=== PATIENT | female | born 1955 | race American Indian/Alaskan Native ===

== ENCOUNTER 2018-08-12 15:27 | Inpatient (IN) | payer OTHER ==
[2018-08-12 15:28] VITALS: BMI 40.7
[2018-08-12] MEDS ORDERED: Sodium Chloride 0.9% 1,000 ML IV ONE ×2 (17:05→18:26)
--- NOTE | 2018-08-12 17:10 | C.PDOC ---
History Of Present Illness 62 yo female w/PMHx of HTN, CVA, CAD come in for evaluation of bodyaches, malaise associated with nausea, 4-5 episodes of non-bilious vomiting and 4-5 episodes of watery diarrhea developed for past 24 hrs, (+) dry cough, congestion. Pr admits, (+) exposure to flu. Otherwise, denies high fever, chills, severe headache, dizziness, neck pain, CP, SOB, wheezing, hematemesis, melena, UTI sx. AT present time, appears comfortable, occasional dry cough. Time Seen by Provider: 08/12/18 15:50 Chief Complaint (Nursing): Cough, Cold, Congestion History Per: Patient Past Medical History Reviewed: Historical Data, Nursing Documentation, Vital Signs Vital Signs: Last Vital Signs Temp 98.5 F 08/12/18 15:41 Pulse 74 08/12/18 15:41 Resp 22 08/12/18 15:41 BP 118/69 08/12/18 15:41 Pulse Ox 93 L 08/12/18 15:41 - Medical History PMH: CAD, HTN, Hypercholesterolemia Surgical History: Coronary Stent (x3) Denies: Pacemaker - [facility] Procedures CORONAR ARTERIOGR-2 CATH (11/23/11) INSERTION OF ONE VASCULAR STENT (11/23/11) INSRT OF DRUG-ELUTING CORON ARTERY STENTS(S) (11/23/11) LEFT HEART CARDIAC CATH (11/23/11) LT HEART ANGIOCARDIOGRAM (11/23/11) PERCUTANEOUS TRANSLUMINAL CORONARY ANGIOPLASTY [PTCA] (11/23/11) PROCEDURE ON SINGLE VESSEL (11/23/11) Family History: States: No Known Family Hx - Social History Hx Alcohol Use: No Hx Substance Use: No - Immunization History Hx Tetanus Toxoid Vaccination: No Hx Influenza Vaccination: No Hx Pneumococcal Vaccination: No Review Of Systems Except As Marked, All Systems Reviewed And Found Negative. Constitutional: Positive for: Malaise. Negative for: Fever ENT: Positive for: Nose Discharge, Nose Congestion Cardiovascular: Negative for: Chest Pain, Palpitations, Light Headedness Respiratory: Positive for: Cough. Negative for: Shortness of Breath, Wheezing Gastrointestinal: Positive for: Nausea, Vomiting, Abdominal Pain, Diarrhea. Negative for: Melena, Hematochezia, Hematemesis Musculoskeletal: Negative for: Neck Pain Skin: Negative for: Rash Neurological: Negative for: Altered Mental Status, Headache, Dizziness Physical Exam - Physical Exam Appears: Well, Non-toxic, No Acute Distress, Other (occasional dry cough) Skin: Normal Color, Warm, Dry Head: Normacephalic Eye(s): bilateral: PERRL Nose: No Flaring, No Discharge Oral Mucosa: Moist Throat: Erythema (mild B/L), No Exudate, No Drooling Neck: Supple Cardiovascular: Rhythm Regular, No Murmur, No JVD Respiratory: No Decreased Breath Sounds, No Accessory Muscle Use, No Stridor, No Wheezing Gastrointestinal/Abdominal: Soft, No Tenderness, No Distention, No Guarding, No Rebound Back: No CVA Tenderness Extremity: Normal ROM, No Deformity, No Swelling Neurological/Psych: Oriented x3, Normal Speech ED Course And Treatment - Laboratory Results Result Diagrams: 08/12/18 17:37 08/12/18 17:37 ECG: Interpreted By Me, Viewed By Me Interpretation Of ECG: SR@91/mi, LAD, LAFB, LVH, no acute ST-T changes O2 Sat by Pulse Oximetry: 93 Pulse Ox Interpretation: Abnormal - Other Rad CXR X-Ray: Read By Radiologist Interpretation: Accession No. : [id number]. Patient Name / ID : RICHY BUSH / [id number]. Exam Date : 08/12/2018 17:14:07 ( Approved ). Study Comment : Sex / Age : F / 62Y. Creator : Caryl Henry MD. Dictator : Caryl Henry MD. Feeder/Folder : Dividing Machine Operator Helper : Caryl Henry MD. Approver2 : Report Date : 08/12/2018 17:38:21. My Comment : . HISTORY: SOB. COMPARISON: None available. TECHNIQUE: Chest, one view. FINDINGS: Examination limited by habitus. LUNGS: Patchy opacity at the right lung base may reflect pneumonia. Bilateral hilar prominence. Please note that chest x-ray has limited sensitivity for the detection of pulmonary masses. PLEURA: No significant pleural effusion identified. No definite pneumothorax . CARDIOVASCULAR: Heart size appears top normal. Atherosclerotic calcifications of the aorta. OSSEOUS STRUCTURES: No acute osseous abnormality identified. VISUALIZED UPPER ABDOMEN: Unremarkable. OTHER FINDINGS: None. IMPRESSION: Patchy opacity at the right lung base may reflect pneumonia. Recommend follow- up upon completion of treatment of acute symptoms in order to ensure complete resolution. Bilateral hilar prominence. Progress Note: Pt remained unchanged during the Ed evaluation. remained hypoxic with PulseOx 93 % RA. Pt sts, had 2 more episodes of diarrhea in ED. Afebrile, hemodynamicaly stable. ABd: benign, (-) guarding, (-) rebound. Back: (-) CVA tenderness. Blood work review and appears baseline. Influenza A (-). CXR (+) Right PNA. Case discussed with and admission to [facility] with consult of recommned. Pt received dose of abx in ED, cx pending. Disposition - Disposition Disposition: HOSPITALIZED Disposition Time: 18:27 Condition: STABLE Forms: [facility] (Indonesian) - Clinical Impression Clinical Impression: Pneumonia, Hypoxia
[2018-08-12] MEDS ORDERED: Sodium Chloride 0.9% 1,000 ML ONE (17:41)
--- NOTE | 2018-08-12 17:41 | RAD ---
HISTORY: SOB COMPARISON: None available. TECHNIQUE: Chest, one view. FINDINGS: Examination limited by habitus. LUNGS: Patchy opacity at the right lung base may reflect pneumonia. Bilateral hilar prominence. Please note that chest x-ray has limited sensitivity for the detection of pulmonary masses. PLEURA: No significant pleural effusion identified. No definite pneumothorax . CARDIOVASCULAR: Heart size appears top normal. Atherosclerotic calcifications of the aorta. OSSEOUS STRUCTURES: No acute osseous abnormality identified. VISUALIZED UPPER ABDOMEN: Unremarkable. OTHER FINDINGS: None. IMPRESSION: Patchy opacity at the right lung base may reflect pneumonia. Recommend follow-up upon completion of treatment of acute symptoms in order to ensure complete resolution. Bilateral hilar prominence.
[2018-08-12 17:42] LABS: BASO # 0.1 K/uL (0.0-0.2); BASO % 0.5 % (0.0-2.0); EOS % 0.4 % (0.0-4.0); LYMPH # 2.6 K/uL (1.0-4.3); LYMPH % 23.5 % (20.0-40.0); MEAN CELL VOLUME 95.4 fL (81.0-99.0); MEAN CORPUSCULAR HEMOGLOBIN 32.1 pg (27.0-31.0); MEAN CORPUSCULAR HGB CONC 33.7 g/dL (33.0-37.0); MONO % 8.8 % (0.0-10.0); NEUT # 7.3 K/uL (1.8-7.0); NEUT % 66.8 % (50.0-75.0); NRBC % 0.1 % (0.0-2.0); RBC 4.36 Mil/uL (3.80-5.20); RED CELL DISTRIBUTION WIDTH 14.1 % (11.5-14.5); WHITE BLOOD COUNT 10.9 K/uL (4.8-10.8)
[2018-08-12 17:51] LABS: INR 1.3
[2018-08-12 18:14] LABS: ALB/GLOB RATIO 1.1 (1.0-2.1); ALBUMIN 4.4 g/dL (3.5-5.0); CALCIUM 8.9 mg/dl (8.6-10.4)
[2018-08-12] MEDS ORDERED: Cefepime IV 2 gm in Dextrose 2 GM/100 ML BAG IVPB STA (18:19)
[2018-08-12 18:25] LABS: TROPONIN I 0.027 ng/mL (0.00-0.120)
[2018-08-12 20:14] LABS: VENOUS BLOOD GAS BASE EXCESS 0.5 mmol/L (0.0-2.0); VENOUS BLOOD GAS PCO2 50 mmHg (40-60); VENOUS BLOOD GAS PO2 20 mm/Hg (30-55); VENOUS BLOOD PH 7.34 (7.32-7.43)
[2018-08-12] MEDS: guaiFENesin 200 mg/10 ml Syrup UD PO PRN (21:45)
[2018-08-12 22:21] LABS: SQUAMOUS EPITHIAL < 1 /hpf (0-5); URINE BACTERIA RARE (<OCC); URINE BILIRUBIN NEGATIVE (NEGATIVE); URINE CLARITY Clear (Clear); URINE COLOR Yellow (YELLOW); URINE GLUCOSE (UA) NORMAL (Normal); URINE LEUKOCYTE ESTERASE NEG Leu/uL (Negative); URINE PROTEIN NEGATIVE (NEGATIVE); URINE UROBILINOGEN NORMAL mg/dL (0.2-1.0)
[2018-08-12 22:24] LABS: URINE BLOOD 1+ (NEGATIVE)
[2018-08-13] MEDS: guaiFENesin 200 mg/10 ml Syrup UD PO PRN ×3 (05:45→16:40)
[2018-08-13] MEDS: Metoprolol Succinate 25 mg XL Tab PO SCH (09:16)
[2018-08-13] MEDS: Azithromycin 500 MG in Sodium Chloride 0.9% 250 ML IVPB SCH (09:43)
[2018-08-13 13:49] LABS: BASO % 0.5 % (0.0-2.0); EOS # 0.4 K/uL (0.0-0.7); EOS % 4.2 % (0.0-4.0); HEMOGLOBIN 12.3 g/dL (11.0-16.0); LYMPH # 2.7 K/uL (1.0-4.3); LYMPH % 31.7 % (20.0-40.0); MEAN CORPUSCULAR HEMOGLOBIN 32.4 pg (27.0-31.0); MEAN CORPUSCULAR HGB CONC 33.2 g/dL (33.0-37.0); MEAN PLATELET VOLUME 8.3 fL (7.2-11.7); MONO # 0.7 K/uL (0.0-0.8); MONO % 8.7 % (0.0-10.0); NEUT # 4.7 K/uL (1.8-7.0); NEUT % 54.9 % (50.0-75.0); NRBC % 0.1 % (0.0-2.0); RBC 3.78 Mil/uL (3.80-5.20); RED CELL DISTRIBUTION WIDTH 14.1 % (11.5-14.5); WHITE BLOOD COUNT 8.5 K/uL (4.8-10.8)
[2018-08-13 13:52] LABS: MEAN CELL VOLUME 97.7 fL (81.0-99.0)
[2018-08-13 14:15] LABS: CK-MB 3.68 ng/mL (0.0-3.38)
[2018-08-13 14:21] LABS: ALB/GLOB RATIO 1.1 (1.0-2.1); ALBUMIN 3.7 g/dL (3.5-5.0); ALT/SGPT 15 U/L (9-52); AST/SGOT 40 U/L (14-36); BLOOD UREA NITROGEN 15 mg/dL (7-17); CALCIUM 8.4 mg/dl (8.6-10.4); GFR NON-AFRICAN AMERICAN 50
[2018-08-13] MEDS: Promethazine/Cod 6.25mg-10mg/5ml Syr UD PO PRN ×2 (17:16→21:57)
--- NOTE | 2018-08-13 17:29 | CP.PCM.CON ---
History of Present Illness - History of Present Illness History of Present Illness: 62 year old female presented to the ED with one day of bodyaches, fatigue, nausea, 4 bouts of vomiting and watery diarrhea. She states this is the first time this has happened to her and that it feels like the flu. She has been coughing unproductively but is without shortness of breath. She states she felt febrile earlier but on current presentation states she feels cold. Patient denies any pulmonary issues in the past. Denies aspiration with food or drink. Admits to 20 pack years of smoking but quit 15 years ago. PMHx: HTN, CVA, CAD s/p stent x3 PSHx: coronary stenting x3 Allergies: peanuts, tomatoes, peaches Social: 20 pack years smoker, quit 15 years ago, denies environmental exposure to chemical irritants, animals, or carpets at home. ROS: positives- fatigue, chills, cough, nausea, vomiting, diarrhea, sore throat negatives- shortness of breath, wheezing, headache PE: HEENT: Atraumatic, normocephalic, moist mucous membranes, normal neck inspection Respiratory: mild crackles in right lower lobe Cardiovascular: regular rate and rhythm GI/abdominal: normoactive bowel sounds Extremities: no pedal edema Neurologic: alert Review of Systems - Review of Systems All systems: reviewed and no additional remarkable complaints except (Shortness of breath, chills, cough) Past Patient History - Past Social History Smoking Status: Unknown If Ever Smoked - CARDIAC Hx Hypercholesterolemia: Yes Hx Hypertension: Yes Hx Pacemaker: No - NEUROLOGICAL Hx Paralysis: No - HEMATOLOGICAL/ONCOLOGICAL Hx Blood Transfusions: No Hx Blood Transfusion Reaction: No - MUSCULOSKELETAL/RHEUMATOLOGICAL Hx Falls: No - PSYCHIATRIC Hx Substance Use: No - SURGICAL HISTORY Hx Coronary Stent: Yes (x3) - ANESTHESIA Hx Anesthesia: Yes Hx Anesthesia Reactions: No Hx Malignant Hyperthermia: No Meds Allergies/Adverse Reactions: Allergies Allergy/AdvReac Type Severity Reaction Status Date / Time peanut Allergy Verified 08/12/18 16:59 tomato Allergy Verified 08/12/18 16:59 peach Allergy Mild RASH Uncoded 11/23/11 08:05 - Medications Medications: Current Medications Acetaminophen (Tylenol 325mg Tab) 650 mg PO Q6 PRN PRN Reason: Fever >100.4 F Aspirin (Aspirin Chewable) 81 mg PO DAILY [facility] Last Admin: 08/13/18 09:16 Dose: 81 mg Clopidogrel Bisulfate (Plavix) 75 mg PO DAILY [facility] Last Admin: 08/13/18 09:15 Dose: 75 mg Heparin Sodium (Porcine) (Heparin) 5,000 units SC Q8 [facility] Last Admin: 08/13/18 13:27 Dose: 5,000 units Ceftriaxone Sodium 1 gm/ (Sodium Chloride) 100 mls @ 100 mls/hr IVPB DAILY [facility]; Protocol Last Admin: 08/13/18 09:42 Dose: 100 mls/hr Azithromycin 500 mg/ Sodium (Chloride) 250 mls @ 250 mls/hr IVPB DAILY [facility]; Protocol Last Admin: 08/13/18 09:43 Dose: 250 mls/hr Lisinopril (Zestril) 20 mg PO DAILY [facility] Last Admin: 08/13/18 09:16 Dose: 20 mg Metoprolol Succinate (Toprol Xl) 25 mg PO DAILY [facility] Last Admin: 08/13/18 09:16 Dose: 25 mg Promethazine HCl/Codeine (Phenergan/Codeine Oral Syrup) 5 ml PO Q6 PRN PRN Reason: Cough Last Admin: 08/13/18 17:16 Dose: 5 ml Rosuvastatin Calcium (Crestor) 10 mg PO HS [facility] Last Admin: 08/12/18 21:45 Dose: 10 mg Physical Exam - Head Exam Head Exam: ATRAUMATIC, NORMOCEPHALIC - ENT Exam ENT Exam: Mucous Membranes Moist - Neck Exam Neck exam: Positive for: Normal Inspection - Respiratory Exam Respiratory Exam: Rales - Cardiovascular Exam Cardiovascular Exam: REGULAR RHYTHM - GI/Abdominal Exam GI & Abdominal Exam: Normal Bowel Sounds, Soft - Extremities Exam Extremities exam: Positive for: normal inspection - Neurological Exam Neurological exam: Alert, Oriented x3 Results - Vital Signs Recent Vital Signs: Last Vital Signs Temp 97.7 F 08/13/18 15:00 Pulse 79 08/13/18 15:00 Resp 20 08/13/18 15:00 BP 104/69 08/13/18 15:00 Pulse Ox 94 L 08/13/18 07:44 - Labs Result Diagrams: 08/13/18 13:44 08/13/18 13:44 Labs: Laboratory Results - last 24 hr 08/12/18 08/12/18 08/12/18 17:37 17:37 17:37 WBC 10.9 H RBC 4.36 Hgb 14.0 Hct 41.6 MCV 95.4 MCH 32.1 H MCHC 33.7 RDW 14.1 Plt Count 285 MPV 8.0 Neut % (Auto) 66.8 Lymph % (Auto) 23.5 [place] % (Auto) 8.8 Eos % (Auto) 0.4 Baso % (Auto) 0.5 Neut # (Auto) 7.3 H Lymph # (Auto) 2.6 [place] # (Auto) 1.0 H Eos # (Auto) 0.0 Baso # (Auto) 0.1 PT 14.0 H INR 1.3 APTT 43 H pO2 VBG pH VBG pCO2 VBG HCO3 VBG Total CO2 VBG O2 Sat (Calc) VBG Base Excess VBG Potassium Glucose Lactate FiO2 Sodium Potassium Chloride Carbon Dioxide Anion Gap BUN Creatinine Est GFR ( Amer) Est GFR (Non-Af Amer) Random Glucose Calcium Magnesium Total Bilirubin AST ALT Alkaline Phosphatase Total Creatine Kinase CK-MB (Mass) Troponin I NT-Pro-B Natriuret Pep Total Protein Albumin Globulin Albumin/Globulin Ratio Lipase Venous Blood Potassium Urine Color Urine Clarity Urine pH Ur Specific [place] Urine Protein Urine Glucose (UA) Urine Ketones Urine Blood Urine Nitrate Urine Bilirubin Urine Urobilinogen Ur Leukocyte Esterase Urine WBC (Auto) Urine RBC (Auto) Ur Squamous Epith Cells Urine Bacteria C. difficile Ag & Toxin Influenza Typ A,B (EIA) Negative for flu a/b 08/12/18 08/12/18 08/12/18 17:37 18:45 20:10 WBC RBC Hgb Hct MCV MCH MCHC RDW Plt Count MPV Neut % (Auto) Lymph % (Auto) [place] % (Auto) Eos % (Auto) Baso % (Auto) Neut # (Auto) Lymph # (Auto) [place] # (Auto) Eos # (Auto) Baso # (Auto) PT INR APTT pO2 20 L VBG pH 7.34 VBG pCO2 50 VBG HCO3 23.4 VBG Total CO2 28.5 H VBG O2 Sat (Calc) 30.5 L VBG Base Excess 0.5 VBG Potassium 3.7 Glucose 87 Lactate 2.1 FiO2 21.0 Sodium 138 140.0 Potassium 3.6 Chloride 101 104.0 Carbon Dioxide 25 Anion Gap 16 BUN 19 H Creatinine 1.6 H Est GFR ( Amer) 40 Est GFR (Non-Af Amer) 33 Random Glucose 102 Calcium 8.9 Magnesium 2.1 Total Bilirubin 0.9 AST 40 H ALT 17 Alkaline Phosphatase 98 Total Creatine Kinase CK-MB (Mass) Troponin I 0.0270 NT-Pro-B Natriuret Pep 498 Total Protein 8.4 H Albumin 4.4 Globulin 3.9 Albumin/Globulin Ratio 1.1 Lipase 51 Venous Blood Potassium 3.7 Urine Color Urine Clarity Urine pH Ur Specific [place] Urine Protein Urine Glucose (UA) Urine Ketones Urine Blood Urine Nitrate Urine Bilirubin Urine Urobilinogen Ur Leukocyte Esterase Urine WBC (Auto) Urine RBC (Auto) Ur Squamous Epith Cells Urine Bacteria C. difficile Ag & Toxin Negative Influenza Typ A,B (EIA) 08/12/18 08/13/18 08/13/18 22:14 13:44 13:44 WBC 8.5 RBC 3.78 L Hgb 12.3 Hct 37.0 MCV 97.7 D MCH 32.4 H MCHC 33.2 RDW 14.1 Plt Count 275 MPV 8.3 Neut % (Auto) 54.9 Lymph % (Auto) 31.7 [place] % (Auto) 8.7 Eos % (Auto) 4.2 H Baso % (Auto) 0.5 Neut # (Auto) 4.7 Lymph # (Auto) 2.7 [place] # (Auto) 0.7 Eos # (Auto) 0.4 Baso # (Auto) 0.0 PT INR APTT pO2 VBG pH VBG pCO2 VBG HCO3 VBG Total CO2 VBG O2 Sat (Calc) VBG Base Excess VBG Potassium Glucose Lactate FiO2 Sodium 139 Potassium 4.2 Chloride 106 Carbon Dioxide 25 Anion Gap 12 BUN 15 Creatinine 1.1 Est GFR ( Amer) > 60 Est GFR (Non-Af Amer) 50 Random Glucose 95 Calcium 8.4 L Magnesium Total Bilirubin 0.5 AST 40 H ALT 15 Alkaline Phosphatase 76 Total Creatine Kinase 701 H CK-MB (Mass) 3.68 H Troponin I < 0.0120 NT-Pro-B Natriuret Pep Total Protein 7.1 Albumin 3.7 Globulin 3.4 Albumin/Globulin Ratio 1.1 Lipase Venous Blood Potassium Urine Color Yellow Urine Clarity Clear Urine pH 5.0 Ur Specific [place] 1.008 Urine Protein Negative Urine Glucose (UA) Normal Urine Ketones Negative Urine Blood 1+ H Urine Nitrate Negative Urine Bilirubin Negative Urine Urobilinogen Normal Ur Leukocyte Esterase Neg Urine WBC (Auto) 1 Urine RBC (Auto) 3 Ur Squamous Epith Cells < 1 Urine Bacteria Rare C. difficile Ag & Toxin Influenza Typ A,B (EIA) Assessment & Plan (1) Pneumonia Status: Acute Comment: Chest x-ray consistent with right lung infiltrate. Continue azithromycin and ceftriaxone. Legionella mycoplasma titer. Antitussive
--- NOTE | 2018-08-13 22:27 | CP.PCM.HP ---
Present on Admission - Present on Admission Any Indicators Present on Admission: No Past Patient History - Past Social History Smoking Status: Unknown If Ever Smoked - CARDIAC Hx Hypercholesterolemia: Yes Hx Hypertension: Yes Hx Pacemaker: No - NEUROLOGICAL Hx Paralysis: No - HEMATOLOGICAL/ONCOLOGICAL Hx Blood Transfusions: No Hx Blood Transfusion Reaction: No - MUSCULOSKELETAL/RHEUMATOLOGICAL Hx Falls: No - PSYCHIATRIC Hx Substance Use: No - SURGICAL HISTORY Hx Coronary Stent: Yes (x3) - ANESTHESIA Hx Anesthesia: Yes Hx Anesthesia Reactions: No Hx Malignant Hyperthermia: No Meds Allergies/Adverse Reactions: Allergies Allergy/AdvReac Type Severity Reaction Status Date / Time peanut Allergy Verified 08/12/18 16:59 tomato Allergy Verified 08/12/18 16:59 peach Allergy Mild RASH Uncoded 11/23/11 08:05 Results - Vital Signs Recent Vital Signs: Last Vital Signs Temp 97.7 F 08/13/18 15:00 Pulse 79 08/13/18 15:00 Resp 20 08/13/18 15:00 BP 104/69 08/13/18 15:00 Pulse Ox 94 L 08/13/18 07:44 - Labs Result Diagrams: 08/13/18 13:44 08/13/18 13:44 Labs: Laboratory Results - last 24 hr 08/13/18 08/13/18 08/13/18 13:44 13:44 19:48 WBC 8.5 RBC 3.78 L Hgb 12.3 Hct 37.0 MCV 97.7 D MCH 32.4 H MCHC 33.2 RDW 14.1 Plt Count 275 MPV 8.3 Neut % (Auto) 54.9 Lymph % (Auto) 31.7 [place] % (Auto) 8.7 Eos % (Auto) 4.2 H Baso % (Auto) 0.5 Neut # (Auto) 4.7 Lymph # (Auto) 2.7 [place] # (Auto) 0.7 Eos # (Auto) 0.4 Baso # (Auto) 0.0 Sodium 139 Potassium 4.2 Chloride 106 Carbon Dioxide 25 Anion Gap 12 BUN 15 Creatinine 1.1 Est GFR ( Amer) > 60 Est GFR (Non-Af Amer) 50 Random Glucose 95 Calcium 8.4 L Total Bilirubin 0.5 AST 40 H ALT 15 Alkaline Phosphatase 76 Total Creatine Kinase 701 H CK-MB (Mass) 3.68 H Troponin I < 0.0120 Total Protein 7.1 Albumin 3.7 Globulin 3.4 Albumin/Globulin Ratio 1.1 Mycoplasma pneumon IgM Negative
--- NOTE | 2018-08-13 22:34 | CARD ---
APPROVED REPORT Date of service: 08/13/2018 EXAM: Two-dimensional and M-mode echocardiogram with Doppler and color Doppler. Other Information Quality : GoodRhythm : INDICATION CVA/TIA Dyspnea Cardiac Disease: CAD Surgery/Intervention Status/Post Intervention: Stent RISK FACTORS Hypertension 2D DIMENSIONS IVSd1.1 (0.7-1.1cm)LVDd5.0 (3.9-5.9cm) PWd1.0 (0.7-1.1cm)LA Ichnba56 (18-58mL) LVDs3.6 (2.5-4.0cm)FS (%) 28.8 % LVEF (%)35.0 (>50%)LVEF (Villanueva's)36.65 % IVC0.00 cm M-Mode DIMENSIONS RVDd1.08 (2.1-3.2cm)Left Atrium (MM)4.65 (2.5-4.0cm) IVSd0.93 (0.7-1.1cm)Aortic Root2.53 (2.2-3.7cm) LVDd6.54 (4.0-5.6cm)Aortic Cusp Exc.1.96 (1.5-2.0cm) PWd0.78 (0.7-1.1cm)FS (%) 16 % LVDs5.53 (2.0-3.8cm)LVEF (%)32 (>50%) Mitral Valve MV E Qesinnok54.0cm/sMV A Kwqxweoh29.9cm/sE/A ratio0.7 TDI Lateral E' Peak V6.67cm/sMedial E' Peak V5.64cm/sE/Lateral E'10.2 E/Medial E'12.1 Tricuspid Valve TR Peak Cunqdraf261wk/sTR Peak Gr.[id number] LEFT VENTRICLE The Left Ventricle is mildly dilated. There is normal left ventricular wall thickness. Left ventricle systolic function is moderately impaired. The Ejection Fraction is 35-40%. There is moderate global hypokinesis of the left ventricle. Tissue Doppler imaging reveals abnormal left ventricular diastolic dysfunction. RIGHT VENTRICLE The right ventricle is normal size. There is normal right ventricular wall thickness. Systolic function is moderately reduced. ATRIA The left atrium is mildly dilated. The right atrium size is normal. The interatrial septum is intact with no evidence for an atrial septal defect. AORTIC VALVE The aortic valve is normal in structure. No aortic regurgitation is present. There is no aortic valvular stenosis. There is no aortic valvular vegetation. MITRAL VALVE The mitral valve is normal in structure. There is no evidence of mitral valve prolapse. There is no mitral valve stenosis. Mitral regurgitation is mild. TRICUSPID VALVE The tricuspid valve is normal in structure. There is mild tricuspid regurgitation. Right ventricular systolic pressure is estimated at less than 30 mmHg. There is no pulmonary hypertension. PULMONIC VALVE The pulmonary valve is normal in structure. There is mild pulmonic valvular regurgitation. GREAT VESSELS The aortic root is normal in size. PERICARDIAL EFFUSION There is no pericardial effusion. <Conclusion> Left ventricle systolic function is moderately impaired. The Ejection Fraction is 35-40%. Diastolic dysfunction. No aortic regurgitation is present. Mitral regurgitation is mild. There is mild tricuspid regurgitation. There is no pulmonary hypertension. There is mild pulmonic valvular regurgitation.
[2018-08-14] MEDS: Albuterol 0.083% Inhal Sol (2.5 mg/3 mL) UD INH SCH ×4 (02:11→19:30)
--- NOTE | 2018-08-14 05:46 | HP ---
CHIEF COMPLAINT: Cough and congestion for four days. HISTORY OF PRESENT ILLNESS: This is a 62-year-old female with history of hypertension, hyperlipidemia who is compliant with her diet, medication, and followup. Four days ago, she started having cough, congestion, wheezing, thick yellow sputum production, fever, chills, rigors, nausea, vomiting, diarrhea, generalized weakness, recurrent GI bleeding. She denied any dysuria, hematuria, pyuria. She denied any polyuria, polydipsia, polyphagia. She denied any joint pain, hip pain. She denied any . She denied any tingling, numbness, paresthesia. She has generalized aches and pains, fatigue, lack of energy, cough, and chest congestion. There is no history of trauma, fall, loss of consciousness. There is no history of seizure-like activity. She denied any tingling, numbness, or paresthesia. ALLERGIES: PEANUT AND TOMATOES. CURRENT MEDICATIONS: At home, taking Norvasc, Lipitor, Toprol, lisinopril, Plavix, and aspirin. SOCIAL HISTORY: Nonsmoker and non-ETOH user. PHYSICAL EXAMINATION: GENERAL: An elderly female, in distress with cough and congestion. VITAL SIGNS: Blood pressure is 104/69, pulse 79, respiratory rate 20, and temperature 97.7. SKIN: Dry. No bruises. No purpura. No petechiae. No ecchymosis. HEENT: Atraumatic and normocephalic. Negative pallor. Negative jaundice. Extraocular movements are intact. NECK: Supple. No JVD. No lymph node. No thyromegaly. No carotid bruit. CHEST WALL: Bilateral symmetrical expansion. LUNGS: Bilateral inspiratory and expiratory rales and rhonchi. Decreased air entry. Crepitation in bilateral bases. CARDIOVASCULAR SYSTEM: PMI not localized. S1 and S2, regular. ABDOMEN: Soft, nontender. Bowel sounds are positive. RECTAL AND PELVIC: Deferred. EXTREMITIES: No clubbing, cyanosis, or edema. CENTRAL NERVOUS SYSTEM: Awake, alert, and oriented x3. Cranial nerves II through XII are normal. Power 5/5 x4. Plantars are downgoing. ASSESSMENT: 1. Right lower lobe pneumonia. 2. Dehydration. 3. Hypertension. 4. Hyperlipidemia. PLAN: Admit. Detailed orders are written, seen and examined. Keith Mathew MD [facility] # [id number]
--- NOTE | 2018-08-14 06:34 | CARD ---
APPROVED REPORT Date of service: 08/12/2018 EKG Measurement Heart [id number] CO [id number] [id number] <Conclusion> Normal sinus rhythm Possible Left atrial enlargement Left anterior fascicular block Left ventricular hypertrophy Septal infarct, age undetermined Abnormal ECG
[2018-08-14] MEDS: Promethazine/Cod 6.25mg-10mg/5ml Syr UD PO PRN ×3 (08:52→23:36)
[2018-08-14] MEDS: Metoprolol Succinate 25 mg XL Tab PO SCH (09:14)
[2018-08-14] MEDS: Azithromycin 500 MG in Sodium Chloride 0.9% 250 ML IVPB SCH (10:00)
[2018-08-14] MEDS ORDERED: MethylPREDNISolone 40 mg Vial IVP ONE (12:08)
--- NOTE | 2018-08-14 13:55 | CP.PCM.PN ---
Subjective - Date & Time of Evaluation Date of Evaluation: 08/14/18 Time of Evaluation: 09:00 - Subjective Subjective: Patient seen and examined at bedside. Remains afebrile but had her oxygen requirements increased to 4L overnight. Patient remains short of breath with a unproductive cough. Still complains of diarrhea but it is improving. ROS: positives- fatigue, chills, cough, nausea, sore throat, diarrhea negatives- shortness of breath, wheezing, headache, vomiting, PE: HEENT: Atraumatic, normocephalic, moist mucous membranes, normal neck inspection Respiratory: mild crackles in right lower lobe Cardiovascular: regular rate and rhythm GI/abdominal: normoactive bowel sounds Extremities: no pedal edema Neurologic: alert AP: 1. Pneumonia. CXR consistent with right lung infiltrate. Continue current regimen of azithromycin and ceftiraxone. F/u legionella mycoplasma titer. Continue antitussive. Objective - Vital Signs/Intake and Output Vital Signs (last 24 hours): Temp Pulse Resp BP Pulse Ox 98.2 F 65 20 117/75 95 08/14/18 08:02 08/14/18 08:02 08/14/18 08:02 08/14/18 08:02 08/14/18 08:02 - Medications Medications: Current Medications Acetaminophen (Tylenol 325mg Tab) 650 mg PO Q6 PRN PRN Reason: Fever >100.4 F Albuterol Sulfate (Albuterol 0.083% Inhal Diane (2.5 Mg/3 Ml) Ud) 2.5 mg INH RQ6 [facility] Last Admin: 08/14/18 13:52 Dose: Not Given Aspirin (Aspirin Chewable) 81 mg PO DAILY [facility] Last Admin: 08/14/18 09:13 Dose: 81 mg Clopidogrel Bisulfate (Plavix) 75 mg PO DAILY [facility] Last Admin: 08/14/18 09:14 Dose: 75 mg Heparin Sodium (Porcine) (Heparin) 5,000 units SC Q8 [facility] Last Admin: 08/14/18 13:29 Dose: 5,000 units Ceftriaxone Sodium 1 gm/ (Sodium Chloride) 100 mls @ 100 mls/hr IVPB DAILY [facility]; Protocol Last Admin: 08/14/18 09:59 Dose: 100 mls/hr Azithromycin 500 mg/ Sodium (Chloride) 250 mls @ 250 mls/hr IVPB DAILY [facility]; Protocol Last Admin: 08/14/18 10:00 Dose: 250 mls/hr Lisinopril (Zestril) 10 mg PO DAILY [facility] Last Admin: 08/14/18 09:13 Dose: 10 mg Metoprolol Succinate (Toprol Xl) 25 mg PO DAILY [facility] Last Admin: 08/14/18 09:14 Dose: 25 mg Promethazine HCl/Codeine (Phenergan/Codeine Oral Syrup) 5 ml PO Q6 PRN PRN Reason: Cough Last Admin: 08/14/18 08:52 Dose: 5 ml Rosuvastatin Calcium (Crestor) 10 mg PO HS [facility] Last Admin: 08/13/18 21:52 Dose: 10 mg - Labs Labs: 08/13/18 13:44 08/13/18 13:44 PT 14.0 SECONDS (9.7-12.2) H 08/12/18 17:37 INR 1.3 08/12/18 17:37 APTT 43 SECONDS (21-34) H 08/12/18 17:37 Assessment and Plan (1) Pneumonia Status: Acute
[2018-08-14] MEDS ORDERED: Benzocaine/Menthol (Cepacol) Lozenge MT ONE (19:59)
--- NOTE | 2018-08-14 23:53 | CP.PCM.CON ---
History of Present Illness - History of Present Illness History of Present Illness: 62 yo female w/PMHx of HTN, CVA, CAD come in for evaluation of bodyaches, malaise associated with nausea, 4-5 episodes of non-bilious vomiting and 4-5 episodes of watery diarrhea developed for past 24 hrs, (+) dry cough, congestion. Pr admits, (+) exposure to flu. Otherwise, denies high fever, chills, severe headache, dizziness, neck pain, CP, SOB, wheezing, hematemesis, melena, UTI sx. AT present time, appears comfortable, occasional dry cough. Chief Complaint (Nursing): Cough, Cold, Congestion History Per: Patient Past Medical History Reviewed: Historical Data, Nursing Documentation, Vital Signs Vital Signs: Last Vital Signs Temp 98.5 F 08/12/18 15:41 Pulse 74 08/12/18 15:41 Resp 22 08/12/18 15:41 BP 118/69 08/12/18 15:41 Pulse Ox 93 L 08/12/18 15:41 - Medical History PMH: CAD, HTN, Hypercholesterolemia Surgical History: Coronary Stent (x3) Denies: Pacemaker - [facility] Procedures CORONAR ARTERIOGR-2 CATH (11/23/11) INSERTION OF ONE VASCULAR STENT (11/23/11) INSRT OF DRUG-ELUTING CORON ARTERY STENTS(S) (11/23/11) LEFT HEART CARDIAC CATH (11/23/11) LT HEART ANGIOCARDIOGRAM (11/23/11) PERCUTANEOUS TRANSLUMINAL CORONARY ANGIOPLASTY [PTCA] (11/23/11) PROCEDURE ON SINGLE VESSEL (11/23/11) Family History: States: No Known Family Hx - Social History Hx Alcohol Use: No Hx Substance Use: No - Immunization History Hx Tetanus Toxoid Vaccination: No Hx Influenza Vaccination: No Hx Pneumococcal Vaccination: No Review Of Systems Except As Marked, All Systems Reviewed And Found Negative. Constitutional: Positive for: Malaise. Negative for: Fever ENT: Positive for: Nose Discharge, Nose Congestion Cardiovascular: Negative for: Chest Pain, Palpitations, Light Headedness Respiratory: Positive for: Cough. Negative for: Shortness of Breath, Wheezing Gastrointestinal: Positive for: Nausea, Vomiting, Abdominal Pain, Diarrhea. Negative for: Melena, Hematochezia, Hematemesis Musculoskeletal: Negative for: Neck Pain Skin: Negative for: Rash Neurological: Negative for: Altered Mental Status, Headache, Dizziness Physical Exam - Physical Exam Appears: Well, Non-toxic, No Acute Distress, Other (occasional dry cough) Skin: Normal Color, Warm, Dry Head: Normacephalic Eye(s): bilateral: PERRL Nose: No Flaring, No Discharge Oral Mucosa: Moist Throat: Erythema (mild B/L), No Exudate, No Drooling Neck: Supple Cardiovascular: Rhythm Regular, No Murmur, No JVD Respiratory: No Decreased Breath Sounds, No Accessory Muscle Use, No Stridor, No Wheezing Gastrointestinal/Abdominal: Soft, No Tenderness, No Distention, No Guarding, No Rebound Back: No CVA Tenderness Extremity: Normal ROM, No Deformity, No Swelling Neurological/Psych: Oriented x3, Normal Speech Past Patient History - Past Social History Smoking Status: Unknown If Ever Smoked - CARDIAC Hx Hypercholesterolemia: Yes Hx Hypertension: Yes Hx Pacemaker: No - NEUROLOGICAL Hx Paralysis: No - HEMATOLOGICAL/ONCOLOGICAL Hx Blood Transfusions: No Hx Blood Transfusion Reaction: No - MUSCULOSKELETAL/RHEUMATOLOGICAL Hx Falls: No - PSYCHIATRIC Hx Substance Use: No - SURGICAL HISTORY Hx Coronary Stent: Yes (x3) - ANESTHESIA Hx Anesthesia: Yes Hx Anesthesia Reactions: No Hx Malignant Hyperthermia: No Meds Allergies/Adverse Reactions: Allergies Allergy/AdvReac Type Severity Reaction Status Date / Time peanut Allergy Verified 08/12/18 16:59 tomato Allergy Verified 08/12/18 16:59 peach Allergy Mild RASH Uncoded 11/23/11 08:05 - Medications Medications: Current Medications Acetaminophen (Tylenol 325mg Tab) 650 mg PO Q6 PRN PRN Reason: Fever >100.4 F Albuterol Sulfate (Albuterol 0.083% Inhal Diane (2.5 Mg/3 Ml) Ud) 2.5 mg INH RQ6 [facility] Last Admin: 08/14/18 19:30 Dose: 2.5 mg Aspirin (Aspirin Chewable) 81 mg PO DAILY [facility] Last Admin: 08/14/18 09:13 Dose: 81 mg Clopidogrel Bisulfate (Plavix) 75 mg PO DAILY [facility] Last Admin: 08/14/18 09:14 Dose: 75 mg Heparin Sodium (Porcine) (Heparin) 5,000 units SC Q8 [facility] Last Admin: 08/14/18 21:15 Dose: 5,000 units Ceftriaxone Sodium 1 gm/ (Sodium Chloride) 100 mls @ 100 mls/hr IVPB DAILY [facility]; Protocol Last Admin: 08/14/18 09:59 Dose: 100 mls/hr Azithromycin 500 mg/ Sodium (Chloride) 250 mls @ 250 mls/hr IVPB DAILY [facility]; Protocol Last Admin: 08/14/18 10:00 Dose: 250 mls/hr Lisinopril (Zestril) 10 mg PO DAILY [facility] Last Admin: 08/14/18 09:13 Dose: 10 mg Metoprolol Succinate (Toprol Xl) 25 mg PO DAILY [facility] Last Admin: 08/14/18 09:14 Dose: 25 mg Promethazine HCl/Codeine (Phenergan/Codeine Oral Syrup) 5 ml PO Q6 PRN PRN Reason: Cough Last Admin: 08/14/18 23:36 Dose: 5 ml Rosuvastatin Calcium (Crestor) 10 mg PO HS [facility] Last Admin: 08/14/18 21:15 Dose: 10 mg Results - Vital Signs Recent Vital Signs: Last Vital Signs Temp 97.9 F 08/14/18 16:03 Pulse 74 08/14/18 19:33 Resp 20 08/14/18 16:03 BP 113/57 L 08/14/18 16:03 Pulse Ox 94 L 08/14/18 16:03 - Labs Result Diagrams: 08/13/18 13:44 08/13/18 13:44 Labs: Laboratory Results - last 24 hr 08/14/18 09:09 Ur L.pneumophila Ag Negative Assessment & Plan - Assessment and Plan (Free Text) Assessment: 62 with hx of CAD s/p stents Isch CMP admitted for pneumonia Will follow
--- NOTE | 2018-08-14 23:55 | CP.PCM.PN ---
Subjective - Date & Time of Evaluation Date of Evaluation: 08/14/18 Time of Evaluation: 19:20 - Subjective Subjective: Patient seen and evaluated denies chest pain and dyspnea Review Of Systems Except As Marked, All Systems Reviewed And Found Negative. Constitutional: Positive for: Malaise. Negative for: Fever ENT: Positive for: Nose Discharge, Nose Congestion Cardiovascular: Negative for: Chest Pain, Palpitations, Light Headedness Respiratory: Positive for: Cough. Negative for: Shortness of Breath, Wheezing Gastrointestinal: Positive for: Nausea, Vomiting, Abdominal Pain, Diarrhea. Negative for: Melena, Hematochezia, Hematemesis Musculoskeletal: Negative for: Neck Pain Skin: Negative for: Rash Neurological: Negative for: Altered Mental Status, Headache, Dizziness Physical Exam - Physical Exam Appears: Well, Non-toxic, No Acute Distress, Other (occasional dry cough) Skin: Normal Color, Warm, Dry Head: Normacephalic Eye(s): bilateral: PERRL Nose: No Flaring, No Discharge Oral Mucosa: Moist Throat: Erythema (mild B/L), No Exudate, No Drooling Neck: Supple Cardiovascular: Rhythm Regular, No Murmur, No JVD Respiratory: No Decreased Breath Sounds, No Accessory Muscle Use, No Stridor, No Wheezing Gastrointestinal/Abdominal: Soft, No Tenderness, No Distention, No Guarding, No Rebound Back: No CVA Tenderness Extremity: Normal ROM, No Deformity, No Swelling Neurological/Psych: Oriented x3, Normal Speech Objective - Vital Signs/Intake and Output Vital Signs (last 24 hours): Temp Pulse Resp BP Pulse Ox 97.9 F 74 20 113/57 L 94 L 08/14/18 16:03 08/14/18 19:33 08/14/18 16:03 08/14/18 16:03 08/14/18 16:03 Intake and Output: 08/14/18 08/15/18 18:59 06:59 Intake Total 1800 Balance 1800 - Medications Medications: Current Medications Acetaminophen (Tylenol 325mg Tab) 650 mg PO Q6 PRN PRN Reason: Fever >100.4 F Albuterol Sulfate (Albuterol 0.083% Inhal Diane (2.5 Mg/3 Ml) Ud) 2.5 mg INH RQ6 [facility] Last Admin: 08/14/18 19:30 Dose: 2.5 mg Aspirin (Aspirin Chewable) 81 mg PO DAILY [facility] Last Admin: 08/14/18 09:13 Dose: 81 mg Clopidogrel Bisulfate (Plavix) 75 mg PO DAILY [facility] Last Admin: 08/14/18 09:14 Dose: 75 mg Heparin Sodium (Porcine) (Heparin) 5,000 units SC Q8 [facility] Last Admin: 08/14/18 21:15 Dose: 5,000 units Ceftriaxone Sodium 1 gm/ (Sodium Chloride) 100 mls @ 100 mls/hr IVPB DAILY [facility]; Protocol Last Admin: 08/14/18 09:59 Dose: 100 mls/hr Azithromycin 500 mg/ Sodium (Chloride) 250 mls @ 250 mls/hr IVPB DAILY [facility]; Protocol Last Admin: 08/14/18 10:00 Dose: 250 mls/hr Lisinopril (Zestril) 10 mg PO DAILY [facility] Last Admin: 08/14/18 09:13 Dose: 10 mg Metoprolol Succinate (Toprol Xl) 25 mg PO DAILY [facility] Last Admin: 08/14/18 09:14 Dose: 25 mg Promethazine HCl/Codeine (Phenergan/Codeine Oral Syrup) 5 ml PO Q6 PRN PRN Reason: Cough Last Admin: 08/14/18 23:36 Dose: 5 ml Rosuvastatin Calcium (Crestor) 10 mg PO HS [facility] Last Admin: 08/14/18 21:15 Dose: 10 mg - Labs Labs: 08/13/18 13:44 08/13/18 13:44 PT 14.0 SECONDS (9.7-12.2) H 08/12/18 17:37 INR 1.3 08/12/18 17:37 APTT 43 SECONDS (21-34) H 08/12/18 17:37 Assessment and Plan - Assessment and Plan (Free Text) Assessment: 62 F with hx of CAD s/p stents HTN Isch CMP pneumonia resolving
--- NOTE | 2018-08-15 01:05 | PN ---
DATE: 08/14/2018 SUBJECTIVE: The patient is still coughing, wheezing, and mildly shortness of breath. Mycoplasma antibodies are negative. No nausea or vomiting. She is on nebulizer. PHYSICAL EXAMINATION: VITAL SIGNS: Blood pressure 113/57, pulse 74, respiratory rate 20, temperature 97.9. LUNGS: Bilateral inspiratory and expiratory rhonchi. Bilateral rales. CARDIOVASCULAR SYSTEM: S1 and S2, regular. No heave. No thrill. ABDOMEN: Soft, nontender. Bowel sounds are positive. ASSESSMENT: 1. Pneumonia. 2. Hypertension. 3. Elevated creatine phosphokinase level. PLAN: Solu-Medrol single dose. Continue Rocephin. Monitor the patient. Keith Mathew MD
[2018-08-15] MEDS: Albuterol 0.083% Inhal Sol (2.5 mg/3 mL) UD INH SCH ×4 (01:21→21:02)
[2018-08-15] MEDS: Promethazine/Cod 6.25mg-10mg/5ml Syr UD PO PRN ×3 (06:37→21:32)
[2018-08-15] MEDS: Metoprolol Succinate 25 mg XL Tab PO SCH (09:35)
[2018-08-15] MEDS: Azithromycin 500 MG in Sodium Chloride 0.9% 250 ML IVPB SCH (10:15)
[2018-08-15] MEDS: Benzocaine/Menthol (Cepacol) Lozenge MT SCH ×4 (12:10→21:30)
--- NOTE | 2018-08-15 20:30 | CP.PCM.PN ---
Subjective - Date & Time of Evaluation Date of Evaluation: 08/15/18 Time of Evaluation: 17:00 - Subjective Subjective: Patient seen and examined at bedside. Remains afebrile. Patient states she feels markedly improved from yesterday but still has shortness of breath and unproductive cough. She states the codeine she received over night helped with her cough allowing her to sleep. Patient states her throat is still hoarse and dry. Patient denies diarrhea. Patient's oxygen requirements decreased to 3L overnight from 4 L on previous day. Legionella urine antigen returned negative. ROS: positives- SOB, cough, sore throat negatives- wheezing, vomiting, diarhea PE: HEENT: Atraumatic, normocephalic, moist mucous membranes, normal neck inspection Respiratory: mild crackles in right lower lobe Cardiovascular: regular rate and rhythm GI/abdominal: normoactive bowel sounds Extremities: no pedal edema Neurologic: alert AP: 1. Pneumonia. CXR consistent with right lung infiltrate. Continue current regimen of azithromycin and ceftiraxone. Legionella urine antigen negative. Continue antitussive. -Started on steroids -Start Mucomyst Objective - Vital Signs/Intake and Output Vital Signs (last 24 hours): Temp Pulse Resp BP Pulse Ox 97.3 F L 68 20 131/67 97 08/15/18 16:00 08/15/18 16:00 08/15/18 16:00 08/15/18 16:00 08/15/18 16:00 - Medications Medications: Current Medications Acetaminophen (Tylenol 325mg Tab) 650 mg PO Q6 PRN PRN Reason: Fever >100.4 F Albuterol Sulfate (Albuterol 0.083% Inhal Diane (2.5 Mg/3 Ml) Ud) 2.5 mg INH RQ6 [facility] Last Admin: 08/15/18 14:08 Dose: 2.5 mg Aspirin (Aspirin Chewable) 81 mg PO DAILY [facility] Last Admin: 08/15/18 09:35 Dose: 81 mg Benzocaine/Menthol (Cepacol Sore Throat) 1 john MT QID [facility] Last Admin: 08/15/18 14:01 Dose: 1 john Clopidogrel Bisulfate (Plavix) 75 mg PO DAILY [facility] Last Admin: 08/15/18 09:35 Dose: 75 mg Heparin Sodium (Porcine) (Heparin) 5,000 units SC Q8 [facility] Last Admin: 08/15/18 13:56 Dose: 5,000 units Ceftriaxone Sodium 1 gm/ (Sodium Chloride) 100 mls @ 100 mls/hr IVPB DAILY [facility]; Protocol Last Admin: 08/15/18 10:15 Dose: 100 mls/hr Azithromycin 500 mg/ Sodium (Chloride) 250 mls @ 250 mls/hr IVPB DAILY [facility]; Protocol Last Admin: 08/15/18 10:15 Dose: 250 mls/hr Lisinopril (Zestril) 10 mg PO DAILY [facility] Last Admin: 08/15/18 09:35 Dose: 10 mg Methylprednisolone (Solu-Medrol) 60 mg IVP Q12 [facility] Last Admin: 08/15/18 12:16 Dose: 60 mg Metoprolol Succinate (Toprol Xl) 25 mg PO DAILY [facility] Last Admin: 08/15/18 09:35 Dose: 25 mg Promethazine HCl/Codeine (Phenergan/Codeine Oral Syrup) 5 ml PO Q6 PRN PRN Reason: Cough Last Admin: 08/15/18 14:02 Dose: 5 ml Rosuvastatin Calcium (Crestor) 10 mg PO HS [facility] Last Admin: 08/14/18 21:15 Dose: 10 mg - Labs Labs: 08/13/18 13:44 08/13/18 13:44 PT 14.0 SECONDS (9.7-12.2) H 08/12/18 17:37 INR 1.3 08/12/18 17:37 APTT 43 SECONDS (21-34) H 08/12/18 17:37 Assessment and Plan (1) Pneumonia Status: Acute
[2018-08-15] MEDS: Acetylcysteine 20% Inhal Soln (4ml) INH SCH (21:01)
--- NOTE | 2018-08-15 22:10 | CP.PCM.PN ---
Subjective - Date & Time of Evaluation Date of Evaluation: 08/15/18 Time of Evaluation: 07:00 - Subjective Subjective: dictated Objective - Vital Signs/Intake and Output Vital Signs (last 24 hours): Temp Pulse Resp BP Pulse Ox 97.3 F L 68 20 131/67 97 08/15/18 16:00 08/15/18 16:00 08/15/18 16:00 08/15/18 16:00 08/15/18 16:00 - Medications Medications: Current Medications Acetaminophen (Tylenol 325mg Tab) 650 mg PO Q6 PRN PRN Reason: Fever >100.4 F Acetylcysteine (Acetylcysteine 20%) 4 ml INH RQ6 [facility] Last Admin: 08/15/18 21:01 Dose: 4 ml Albuterol Sulfate (Albuterol 0.083% Inhal Diane (2.5 Mg/3 Ml) Ud) 2.5 mg INH RQ6 [facility] Last Admin: 08/15/18 21:02 Dose: 2.5 mg Aspirin (Aspirin Chewable) 81 mg PO DAILY [facility] Last Admin: 08/15/18 09:35 Dose: 81 mg Benzocaine/Menthol (Cepacol Sore Throat) 1 john MT QID [facility] Last Admin: 08/15/18 21:30 Dose: 1 john Clopidogrel Bisulfate (Plavix) 75 mg PO DAILY [facility] Last Admin: 08/15/18 09:35 Dose: 75 mg Heparin Sodium (Porcine) (Heparin) 5,000 units SC Q8 [facility] Last Admin: 08/15/18 21:32 Dose: 5,000 units Ceftriaxone Sodium 1 gm/ (Sodium Chloride) 100 mls @ 100 mls/hr IVPB DAILY [facility]; Protocol Last Admin: 08/15/18 10:15 Dose: 100 mls/hr Azithromycin 500 mg/ Sodium (Chloride) 250 mls @ 250 mls/hr IVPB DAILY [facility]; Protocol Last Admin: 08/15/18 10:15 Dose: 250 mls/hr Lisinopril (Zestril) 10 mg PO DAILY [facility] Last Admin: 08/15/18 09:35 Dose: 10 mg Methylprednisolone (Solu-Medrol) 60 mg IVP Q12 [facility] Last Admin: 08/15/18 21:34 Dose: 60 mg Metoprolol Succinate (Toprol Xl) 25 mg PO DAILY [facility] Last Admin: 08/15/18 09:35 Dose: 25 mg Promethazine HCl/Codeine (Phenergan/Codeine Oral Syrup) 5 ml PO Q6 PRN PRN Reason: Cough Last Admin: 08/15/18 21:32 Dose: 5 ml Rosuvastatin Calcium (Crestor) 10 mg PO HS [facility] Last Admin: 08/15/18 21:31 Dose: 10 mg - Labs Labs: 08/13/18 13:44 08/13/18 13:44 PT 14.0 SECONDS (9.7-12.2) H 08/12/18 17:37 INR 1.3 08/12/18 17:37 APTT 43 SECONDS (21-34) H 08/12/18 17:37
[2018-08-16] MEDS: Acetylcysteine 20% Inhal Soln (4ml) INH SCH ×5 (02:50→19:26)
[2018-08-16] MEDS: Albuterol 0.083% Inhal Sol (2.5 mg/3 mL) UD INH SCH ×5 (02:50→19:26)
--- NOTE | 2018-08-16 04:01 | PN ---
DATE: 08/15/2018 SUBJECTIVE: She is coughing, wheezing, and is short of breath. No fever. Overall, she feels better except for wheezing. PHYSICAL EXAMINATION: VITAL SIGNS: Blood pressure 131/67, pulse 68, respiratory rate 20, temperature 97.3. LUNGS: Bilateral inspiratory and expiratory rhonchi. Decreased air entry. CARDIOVASCULAR SYSTEMS: S1, S2, regular. ABDOMEN: Soft, nontender. Bowel sounds are positive. ASSESSMENT: 1. Pneumonia with wheezing. 2. Hypertension. PLAN: Solu-Medrol. Continue to monitor patient. Keith Mathew MD
[2018-08-16] MEDS: Promethazine/Cod 6.25mg-10mg/5ml Syr UD PO PRN ×3 (05:35→21:21)
--- NOTE | 2018-08-16 09:35 | CP.PCM.PN ---
Subjective - Date & Time of Evaluation Date of Evaluation: 08/15/18 Time of Evaluation: 19:20 - Subjective Subjective: Patient seen and evaluated still has a lot of cough and throat pain On antibiotics Review Of Systems Except As Marked, All Systems Reviewed And Found Negative. Constitutional: Positive for: Malaise. Negative for: Fever ENT: Positive for: Nose Discharge, Nose Congestion Cardiovascular: Negative for: Chest Pain, Palpitations, Light Headedness Respiratory: Positive for: Cough. Negative for: Shortness of Breath, Wheezing Gastrointestinal: Positive for: Nausea, Vomiting, Abdominal Pain, Diarrhea. Negative for: Melena, Hematochezia, Hematemesis Musculoskeletal: Negative for: Neck Pain Skin: Negative for: Rash Neurological: Negative for: Altered Mental Status, Headache, Dizziness Physical Exam - Physical Exam Appears: Well, Non-toxic, No Acute Distress, Other (occasional dry cough) Skin: Normal Color, Warm, Dry Head: Normacephalic Eye(s): bilateral: PERRL Nose: No Flaring, No Discharge Oral Mucosa: Moist Throat: Erythema (mild B/L), No Exudate, No Drooling Neck: Supple Cardiovascular: Rhythm Regular, No Murmur, No JVD Respiratory: No Decreased Breath Sounds, No Accessory Muscle Use, No Stridor, No Wheezing Gastrointestinal/Abdominal: Soft, No Tenderness, No Distention, No Guarding, No Rebound Back: No CVA Tenderness Extremity: Normal ROM, No Deformity, No Swelling Neurological/Psych: Oriented x3, Normal Speech Objective - Vital Signs/Intake and Output Vital Signs (last 24 hours): Temp Pulse Resp BP Pulse Ox 98.1 F 78 20 161/76 H 95 08/16/18 07:00 08/16/18 07:00 08/16/18 07:00 08/16/18 07:00 08/16/18 07:00 Intake and Output: 08/16/18 08/16/18 06:59 18:59 Intake Total 400 Balance 400 - Medications Medications: Current Medications Acetaminophen (Tylenol 325mg Tab) 650 mg PO Q6 PRN PRN Reason: Fever >100.4 F Acetylcysteine (Acetylcysteine 20%) 4 ml INH RQ6 [facility] Last Admin: 08/16/18 08:00 Dose: Not Given Albuterol Sulfate (Albuterol 0.083% Inhal Diane (2.5 Mg/3 Ml) Ud) 2.5 mg INH RQ6 [facility] Last Admin: 08/16/18 08:00 Dose: Not Given Aspirin (Aspirin Chewable) 81 mg PO DAILY [facility] Last Admin: 08/15/18 09:35 Dose: 81 mg Benzocaine/Menthol (Cepacol Sore Throat) 1 john MT QID [facility] Last Admin: 08/15/18 21:30 Dose: 1 john Clopidogrel Bisulfate (Plavix) 75 mg PO DAILY [facility] Last Admin: 08/15/18 09:35 Dose: 75 mg Heparin Sodium (Porcine) (Heparin) 5,000 units SC Q8 [facility] Last Admin: 08/16/18 05:10 Dose: 5,000 units Ceftriaxone Sodium 1 gm/ (Sodium Chloride) 100 mls @ 100 mls/hr IVPB DAILY [facility]; Protocol Last Admin: 08/15/18 10:15 Dose: 100 mls/hr Azithromycin 500 mg/ Sodium (Chloride) 250 mls @ 250 mls/hr IVPB DAILY [facility]; Protocol Last Admin: 08/15/18 10:15 Dose: 250 mls/hr Lisinopril (Zestril) 10 mg PO DAILY [facility] Last Admin: 08/15/18 09:35 Dose: 10 mg Methylprednisolone (Solu-Medrol) 60 mg IVP Q12 [facility] Last Admin: 08/15/18 21:34 Dose: 60 mg Metoprolol Succinate (Toprol Xl) 25 mg PO DAILY [facility] Last Admin: 08/15/18 09:35 Dose: 25 mg Promethazine HCl/Codeine (Phenergan/Codeine Oral Syrup) 5 ml PO Q6 PRN PRN Reason: Cough Last Admin: 08/16/18 05:35 Dose: 5 ml Rosuvastatin Calcium (Crestor) 10 mg PO HS [facility] Last Admin: 08/15/18 21:31 Dose: 10 mg - Labs Labs: 08/13/18 13:44 08/13/18 13:44 PT 14.0 SECONDS (9.7-12.2) H 08/12/18 17:37 INR 1.3 08/12/18 17:37 APTT 43 SECONDS (21-34) H 08/12/18 17:37 Assessment and Plan - Assessment and Plan (Free Text) Assessment: Assessment and Plan - Assessment and Plan (Free Text) Assessment: 62 F with hx of CAD s/p stents HTN Isch CMP Pro BNP and Trops are normal Symptoms are likely due to respiratory illness Pulm and Medicine on the case
[2018-08-16] MEDS: Metoprolol Succinate 25 mg XL Tab PO SCH (10:11)
[2018-08-16] MEDS: Azithromycin 500 MG in Sodium Chloride 0.9% 250 ML IVPB SCH (10:13)
[2018-08-16] MEDS: Benzocaine/Menthol (Cepacol) Lozenge MT SCH ×4 (10:24→21:28)
[2018-08-16 14:32] LABS: BASO % 0.2 % (0.0-2.0); HEMOGLOBIN 11.3 g/dL (11.0-16.0); LYMPH # 1.8 K/uL (1.0-4.3); LYMPH % 10.9 % (20.0-40.0); MEAN CELL VOLUME 97.9 fL (81.0-99.0); MEAN CORPUSCULAR HEMOGLOBIN 32.1 pg (27.0-31.0); MEAN CORPUSCULAR HGB CONC 32.8 g/dL (33.0-37.0); MEAN PLATELET VOLUME 8.8 fL (7.2-11.7); MONO # 0.9 K/uL (0.0-0.8); MONO % 5.3 % (0.0-10.0); NEUT # 14.2 K/uL (1.8-7.0); NEUT % 83.6 % (50.0-75.0); NRBC % 0.1 % (0.0-2.0); RBC 3.53 Mil/uL (3.80-5.20); RED CELL DISTRIBUTION WIDTH 14.2 % (11.5-14.5)
--- NOTE | 2018-08-16 14:51 | RAD ---
Date of service: 08/16/2018 HISTORY: pneumonia COMPARISON: Comparison is made with 08/12/2018 TECHNIQUE: Chest PA and lateral views FINDINGS: LUNGS: No evidence of new infiltrate or consolidation in the lungs. PLEURA: No significant pleural effusion identified. No pneumothorax apparent. CARDIOVASCULAR: No aortic atherosclerotic calcification present. Normal cardiac size. No pulmonary vascular congestion. OSSEOUS STRUCTURES: No significant abnormalities. VISUALIZED UPPER ABDOMEN: Normal. OTHER FINDINGS: None. IMPRESSION: No active disease.
[2018-08-16 15:11] LABS: BLOOD UREA NITROGEN 13 mg/dL (7-17); CALCIUM 9.1 mg/dl (8.6-10.4); GFR NON-AFRICAN AMERICAN > 60
[2018-08-16 15:12] LABS: ALB/GLOB RATIO 1.1 (1.0-2.1); ALBUMIN 3.9 g/dL (3.5-5.0); ALT/SGPT 18 U/L (9-52); AST/SGOT 20 U/L (14-36)
[2018-08-17] MEDS: Acetylcysteine 20% Inhal Soln (4ml) INH SCH ×4 (01:55→19:49)
[2018-08-17] MEDS: Albuterol 0.083% Inhal Sol (2.5 mg/3 mL) UD INH SCH ×4 (01:55→19:49)
--- NOTE | 2018-08-17 09:22 | CP.PCM.PN ---
Subjective - Date & Time of Evaluation Date of Evaluation: 08/16/18 Time of Evaluation: 08:20 - Subjective Subjective: Patient seen and evaluated Cough and weakness On antibiotics Review Of Systems Except As Marked, All Systems Reviewed And Found Negative. Constitutional: Positive for: Malaise. Negative for: Fever ENT: Positive for: Nose Discharge, Nose Congestion Cardiovascular: Negative for: Chest Pain, Palpitations, Light Headedness Respiratory: Positive for: Cough. Negative for: Shortness of Breath, Wheezing Gastrointestinal: Positive for: Nausea, Vomiting, Abdominal Pain, Diarrhea. Negative for: Melena, Hematochezia, Hematemesis Musculoskeletal: Negative for: Neck Pain Skin: Negative for: Rash Neurological: Negative for: Altered Mental Status, Headache, Dizziness Physical Exam - Physical Exam Appears: Well, Non-toxic, No Acute Distress, Other (occasional dry cough) Skin: Normal Color, Warm, Dry Head: Normacephalic Eye(s): bilateral: PERRL Nose: No Flaring, No Discharge Oral Mucosa: Moist Throat: Erythema (mild B/L), No Exudate, No Drooling Neck: Supple Cardiovascular: Rhythm Regular, No Murmur, No JVD Respiratory: No Decreased Breath Sounds, No Accessory Muscle Use, No Stridor, No Wheezing Gastrointestinal/Abdominal: Soft, No Tenderness, No Distention, No Guarding, No Rebound Back: No CVA Tenderness Extremity: Normal ROM, No Deformity, No Swelling Neurological/Psych: Oriented x3, Normal Speech Objective - Vital Signs/Intake and Output Vital Signs (last 24 hours): Temp Pulse Resp BP Pulse Ox 97.9 F 98 H 20 127/75 98 08/16/18 15:30 08/16/18 15:30 08/16/18 15:30 08/16/18 15:30 08/16/18 15:30 - Medications Medications: Current Medications Acetaminophen (Tylenol 325mg Tab) 650 mg PO Q6 PRN PRN Reason: Fever >100.4 F Acetylcysteine (Acetylcysteine 20%) 4 ml INH RQ6 [facility] Last Admin: 08/17/18 01:55 Dose: 4 ml Albuterol Sulfate (Albuterol 0.083% Inhal Diane (2.5 Mg/3 Ml) Ud) 2.5 mg INH RQ6 [facility] Last Admin: 08/17/18 01:55 Dose: 2.5 mg Aspirin (Aspirin Chewable) 81 mg PO DAILY [facility] Last Admin: 08/16/18 10:11 Dose: 81 mg Benzocaine/Menthol (Cepacol Sore Throat) 1 john MT QID [facility] Last Admin: 08/16/18 21:28 Dose: 1 john Clopidogrel Bisulfate (Plavix) 75 mg PO DAILY [facility] Last Admin: 08/16/18 10:11 Dose: 75 mg Heparin Sodium (Porcine) (Heparin) 5,000 units SC Q8 [facility] Last Admin: 08/17/18 05:49 Dose: 5,000 units Ceftriaxone Sodium 1 gm/ (Sodium Chloride) 100 mls @ 100 mls/hr IVPB DAILY [facility]; Protocol Last Admin: 08/16/18 10:13 Dose: 100 mls/hr Azithromycin 500 mg/ Sodium (Chloride) 250 mls @ 250 mls/hr IVPB DAILY [facility]; Protocol Last Admin: 08/16/18 10:13 Dose: 250 mls/hr Lisinopril (Zestril) 10 mg PO DAILY [facility] Last Admin: 08/16/18 10:11 Dose: 10 mg Methylprednisolone (Solu-Medrol) 60 mg IVP Q12 [facility] Last Admin: 08/16/18 21:21 Dose: 60 mg Metoprolol Succinate (Toprol Xl) 25 mg PO DAILY [facility] Last Admin: 08/16/18 10:11 Dose: 25 mg Promethazine HCl/Codeine (Phenergan/Codeine Oral Syrup) 5 ml PO Q6 PRN PRN Reason: Cough Last Admin: 08/16/18 21:21 Dose: 5 ml Rosuvastatin Calcium (Crestor) 10 mg PO HS [facility] Last Admin: 08/16/18 21:21 Dose: 10 mg - Labs Labs: 08/16/18 14:25 08/16/18 14:25 PT 14.0 SECONDS (9.7-12.2) H 08/12/18 17:37 INR 1.3 08/12/18 17:37 APTT 43 SECONDS (21-34) H 08/12/18 17:37 Assessment and Plan - Assessment and Plan (Free Text) Assessment: Assessment and Plan - Assessment and Plan (Free Text) Assessment: 62 F with hx of CAD s/p stents HTN Isch CMP Pro BNP and Trops are normal Symptoms are likely due to Bonchitis/pneumonia Mgt as per Medicine and Pulm
[2018-08-17] MEDS: Benzocaine/Menthol (Cepacol) Lozenge MT SCH ×4 (10:16→21:18)
[2018-08-17] MEDS: Metoprolol Succinate 25 mg XL Tab PO SCH (10:20)
[2018-08-17] MEDS: Azithromycin 500 MG in Sodium Chloride 0.9% 250 ML IVPB SCH (10:26)
--- NOTE | 2018-08-17 11:58 | CP.PCM.PN ---
Subjective - Date & Time of Evaluation Date of Evaluation: 08/17/18 Time of Evaluation: 11:58 - Subjective Subjective: Pulmonary follow up, Covering Dr Manrique The Patient was seen and examined at the bedside, Medical records reviewed, and management issues were discussed and formulated with the house staff. Events reviewed Objective - Vital Signs/Intake and Output Vital Signs (last 24 hours): Temp Pulse Resp BP Pulse Ox 97.7 F 83 20 152/82 H 97 08/17/18 07:00 08/17/18 07:00 08/17/18 07:00 08/17/18 07:00 08/17/18 07:00 - Medications Medications: Current Medications Acetaminophen (Tylenol 325mg Tab) 650 mg PO Q6 PRN PRN Reason: Fever >100.4 F Acetylcysteine (Acetylcysteine 20%) 4 ml INH RQ6 [facility] Last Admin: 08/17/18 09:46 Dose: 4 ml Albuterol Sulfate (Albuterol 0.083% Inhal Diane (2.5 Mg/3 Ml) Ud) 2.5 mg INH RQ6 [facility] Last Admin: 08/17/18 09:46 Dose: 2.5 mg Aspirin (Aspirin Chewable) 81 mg PO DAILY [facility] Last Admin: 08/17/18 10:19 Dose: 81 mg Benzocaine/Menthol (Cepacol Sore Throat) 1 john MT QID [facility] Last Admin: 08/17/18 10:16 Dose: 1 john Clopidogrel Bisulfate (Plavix) 75 mg PO DAILY [facility] Last Admin: 08/17/18 10:20 Dose: 75 mg Heparin Sodium (Porcine) (Heparin) 5,000 units SC Q8 [facility] Last Admin: 08/17/18 05:49 Dose: 5,000 units Ceftriaxone Sodium 1 gm/ (Sodium Chloride) 100 mls @ 100 mls/hr IVPB DAILY [facility]; Protocol Last Admin: 08/17/18 10:23 Dose: 100 mls/hr Azithromycin 500 mg/ Sodium (Chloride) 250 mls @ 250 mls/hr IVPB DAILY [facility]; Protocol Last Admin: 08/17/18 10:26 Dose: 250 mls/hr Lisinopril (Zestril) 10 mg PO DAILY [facility] Last Admin: 08/17/18 10:19 Dose: 10 mg Methylprednisolone (Solu-Medrol) 60 mg IVP Q12 [facility] Last Admin: 08/17/18 10:19 Dose: 60 mg Metoprolol Succinate (Toprol Xl) 25 mg PO DAILY [facility] Last Admin: 08/17/18 10:20 Dose: 25 mg Promethazine HCl/Codeine (Phenergan/Codeine Oral Syrup) 5 ml PO Q6 PRN PRN Reason: Cough Last Admin: 08/16/18 21:21 Dose: 5 ml Rosuvastatin Calcium (Crestor) 10 mg PO HS [facility] Last Admin: 08/16/18 21:21 Dose: 10 mg - Labs Labs: 08/16/18 14:25 08/16/18 14:25 PT 14.0 SECONDS (9.7-12.2) H 08/12/18 17:37 INR 1.3 08/12/18 17:37 APTT 43 SECONDS (21-34) H 08/12/18 17:37
[2018-08-17] MEDS: Promethazine/Cod 6.25mg-10mg/5ml Syr UD PO PRN ×2 (13:36→21:17)
--- NOTE | 2018-08-17 15:00 | PN ---
DATE: 08/17/2018 SUBJECTIVE: She is still coughing, wheezing, hoarseness of voice. She is less short of breath, but her cough is intractable. A chest x-ray is pending. It was ordered today. PHYSICAL EXAMINATION: VITAL SIGNS: Blood pressure is 134/80, pulse 80, respiratory rate 20, temperature 99. LUNGS: Bilateral expiratory/inspiratory rhonchi. Decreased air entry. CARDIOVASCULAR: S1, S2 plus S3 positive. ABDOMEN: Soft, nontender. Bowel sounds are positive. ASSESSMENT: 1. Pneumonia. The patient had more crackles. We need to determine if pneumonia is improving or worsening with chest x-ray. This patient has extensive wheezing and her respiratory status is compromised. Continue Pulmonary followup, Solu-Medrol. 2. Hypertension. 3. Hyperlipidemia. PLAN: Continue current medication. Monitor the patient. Keith Mathew MD
--- NOTE | 2018-08-17 23:57 | CP.PCM.PN ---
Subjective - Date & Time of Evaluation Date of Evaluation: 08/17/18 Time of Evaluation: 18:15 - Subjective Subjective: Patient seen and evaluated Still coughing Feels better No fever Review Of Systems Except As Marked, All Systems Reviewed And Found Negative. Constitutional: Positive for: Malaise. Negative for: Fever ENT: Positive for: Nose Discharge, Nose Congestion Cardiovascular: Negative for: Chest Pain, Palpitations, Light Headedness Respiratory: Positive for: Cough. Negative for: Shortness of Breath, Wheezing Gastrointestinal: Positive for: Nausea, Vomiting, Abdominal Pain, Diarrhea. Ne gative for: Melena, Hematochezia, Hematemesis Musculoskeletal: Negative for: Neck Pain Skin: Negative for: Rash Neurological: Negative for: Altered Mental Status, Headache, Dizziness Physical Exam - Physical Exam Appears: Well, Non-toxic, No Acute Distress, Other (occasional dry cough) Skin: Normal Color, Warm, Dry Head: Normacephalic Eye(s): bilateral: PERRL Nose: No Flaring, No Discharge Oral Mucosa: Moist Throat: Erythema (mild B/L), No Exudate, No Drooling Neck: Supple Cardiovascular: Rhythm Regular, No Murmur, No JVD Respiratory: No Decreased Breath Sounds, No Accessory Muscle Use, No Stridor, No Wheezing Gastrointestinal/Abdominal: Soft, No Tenderness, No Distention, No Guarding, No Rebound Back: No CVA Tenderness Extremity: Normal ROM, No Deformity, No Swelling Neurological/Psych: Oriented x3, Normal Speech Objective - Vital Signs/Intake and Output Vital Signs (last 24 hours): Temp Pulse Resp BP Pulse Ox 97.8 F 61 20 143/87 95 08/17/18 16:00 08/17/18 16:00 08/17/18 16:00 08/17/18 16:00 08/17/18 16:00 Intake and Output: 08/17/18 08/18/18 18:59 06:59 Intake Total 300 Balance 300 - Medications Medications: Current Medications Acetaminophen (Tylenol 325mg Tab) 650 mg PO Q6 PRN PRN Reason: Fever >100.4 F Acetylcysteine (Acetylcysteine 20%) 4 ml INH RQ6 [facility] Last Admin: 08/17/18 19:49 Dose: 4 ml Albuterol Sulfate (Albuterol 0.083% Inhal Diane (2.5 Mg/3 Ml) Ud) 2.5 mg INH RQ6 [facility] Last Admin: 08/17/18 19:49 Dose: 2.5 mg Aspirin (Aspirin Chewable) 81 mg PO DAILY [facility] Last Admin: 08/17/18 10:19 Dose: 81 mg Benzocaine/Menthol (Cepacol Sore Throat) 1 john MT QID [facility] Last Admin: 08/17/18 21:18 Dose: 1 john Clopidogrel Bisulfate (Plavix) 75 mg PO DAILY [facility] Last Admin: 08/17/18 10:20 Dose: 75 mg Heparin Sodium (Porcine) (Heparin) 5,000 units SC Q8 [facility] Last Admin: 08/17/18 21:16 Dose: 5,000 units Ceftriaxone Sodium 1 gm/ (Sodium Chloride) 100 mls @ 100 mls/hr IVPB DAILY [facility]; Protocol Last Admin: 08/17/18 10:23 Dose: 100 mls/hr Azithromycin 500 mg/ Sodium (Chloride) 250 mls @ 250 mls/hr IVPB DAILY [facility]; Protocol Last Admin: 08/17/18 10:26 Dose: 250 mls/hr Lisinopril (Zestril) 10 mg PO DAILY [facility] Last Admin: 08/17/18 10:19 Dose: 10 mg Methylprednisolone (Solu-Medrol) 60 mg IVP Q12 [facility] Last Admin: 08/17/18 21:16 Dose: 60 mg Metoprolol Succinate (Toprol Xl) 25 mg PO DAILY [facility] Last Admin: 08/17/18 10:20 Dose: 25 mg Promethazine HCl/Codeine (Phenergan/Codeine Oral Syrup) 5 ml PO Q6 PRN PRN Reason: Cough Last Admin: 08/17/18 21:17 Dose: 5 ml Rosuvastatin Calcium (Crestor) 10 mg PO HS [facility] Last Admin: 08/17/18 21:17 Dose: 10 mg - Labs Labs: 08/16/18 14:25 08/16/18 14:25 PT 14.0 SECONDS (9.7-12.2) H 08/12/18 17:37 INR 1.3 08/12/18 17:37 APTT 43 SECONDS (21-34) H 08/12/18 17:37 Assessment and Plan - Assessment and Plan (Free Text) Assessment: Pneumonia Chronic Systolic CHF CAD S/P PPM
--- NOTE | 2018-08-18 01:26 | CP.PCM.PN ---
Subjective - Date & Time of Evaluation Date of Evaluation: 08/16/18 Time of Evaluation: 07:00 - Subjective Subjective: dictated Objective - Vital Signs/Intake and Output Vital Signs (last 24 hours): Temp Pulse Resp BP Pulse Ox 97.8 F 61 20 143/87 95 08/17/18 16:00 08/17/18 16:00 08/17/18 16:00 08/17/18 16:00 08/17/18 16:00 Intake and Output: 08/17/18 08/18/18 18:59 06:59 Intake Total 300 Balance 300 - Medications Medications: Current Medications Acetaminophen (Tylenol 325mg Tab) 650 mg PO Q6 PRN PRN Reason: Fever >100.4 F Acetylcysteine (Acetylcysteine 20%) 4 ml INH RQ6 [facility] Last Admin: 08/17/18 19:49 Dose: 4 ml Albuterol Sulfate (Albuterol 0.083% Inhal Diane (2.5 Mg/3 Ml) Ud) 2.5 mg INH RQ6 [facility] Last Admin: 08/17/18 19:49 Dose: 2.5 mg Aspirin (Aspirin Chewable) 81 mg PO DAILY [facility] Last Admin: 08/17/18 10:19 Dose: 81 mg Benzocaine/Menthol (Cepacol Sore Throat) 1 john MT QID [facility] Last Admin: 08/17/18 21:18 Dose: 1 john Clopidogrel Bisulfate (Plavix) 75 mg PO DAILY [facility] Last Admin: 08/17/18 10:20 Dose: 75 mg Heparin Sodium (Porcine) (Heparin) 5,000 units SC Q8 [facility] Last Admin: 08/17/18 21:16 Dose: 5,000 units Ceftriaxone Sodium 1 gm/ (Sodium Chloride) 100 mls @ 100 mls/hr IVPB DAILY [facility]; Protocol Last Admin: 08/17/18 10:23 Dose: 100 mls/hr Azithromycin 500 mg/ Sodium (Chloride) 250 mls @ 250 mls/hr IVPB DAILY [facility]; Protocol Last Admin: 08/17/18 10:26 Dose: 250 mls/hr Lisinopril (Zestril) 10 mg PO DAILY [facility] Last Admin: 08/17/18 10:19 Dose: 10 mg Methylprednisolone (Solu-Medrol) 60 mg IVP Q12 [facility] Last Admin: 08/17/18 21:16 Dose: 60 mg Metoprolol Succinate (Toprol Xl) 25 mg PO DAILY [facility] Last Admin: 08/17/18 10:20 Dose: 25 mg Promethazine HCl/Codeine (Phenergan/Codeine Oral Syrup) 5 ml PO Q6 PRN PRN Reason: Cough Last Admin: 08/17/18 21:17 Dose: 5 ml Rosuvastatin Calcium (Crestor) 10 mg PO HS [facility] Last Admin: 08/17/18 21:17 Dose: 10 mg - Labs Labs: 08/16/18 14:25 08/16/18 14:25 PT 14.0 SECONDS (9.7-12.2) H 08/12/18 17:37 INR 1.3 08/12/18 17:37 APTT 43 SECONDS (21-34) H 08/12/18 17:37
--- NOTE | 2018-08-18 01:27 | CP.PCM.PN ---
Subjective - Date & Time of Evaluation Date of Evaluation: 08/17/18 Time of Evaluation: 07:00 - Subjective Subjective: dictataed Objective - Vital Signs/Intake and Output Vital Signs (last 24 hours): Temp Pulse Resp BP Pulse Ox 97.8 F 61 20 143/87 95 08/17/18 16:00 08/17/18 16:00 08/17/18 16:00 08/17/18 16:00 08/17/18 16:00 Intake and Output: 08/17/18 08/18/18 18:59 06:59 Intake Total 300 Balance 300 - Medications Medications: Current Medications Acetaminophen (Tylenol 325mg Tab) 650 mg PO Q6 PRN PRN Reason: Fever >100.4 F Acetylcysteine (Acetylcysteine 20%) 4 ml INH RQ6 [facility] Last Admin: 08/17/18 19:49 Dose: 4 ml Albuterol Sulfate (Albuterol 0.083% Inhal Diane (2.5 Mg/3 Ml) Ud) 2.5 mg INH RQ6 [facility] Last Admin: 08/17/18 19:49 Dose: 2.5 mg Aspirin (Aspirin Chewable) 81 mg PO DAILY [facility] Last Admin: 08/17/18 10:19 Dose: 81 mg Benzocaine/Menthol (Cepacol Sore Throat) 1 john MT QID [facility] Last Admin: 08/17/18 21:18 Dose: 1 john Clopidogrel Bisulfate (Plavix) 75 mg PO DAILY [facility] Last Admin: 08/17/18 10:20 Dose: 75 mg Heparin Sodium (Porcine) (Heparin) 5,000 units SC Q8 [facility] Last Admin: 08/17/18 21:16 Dose: 5,000 units Ceftriaxone Sodium 1 gm/ (Sodium Chloride) 100 mls @ 100 mls/hr IVPB DAILY [facility]; Protocol Last Admin: 08/17/18 10:23 Dose: 100 mls/hr Azithromycin 500 mg/ Sodium (Chloride) 250 mls @ 250 mls/hr IVPB DAILY [facility]; Protocol Last Admin: 08/17/18 10:26 Dose: 250 mls/hr Lisinopril (Zestril) 10 mg PO DAILY [facility] Last Admin: 08/17/18 10:19 Dose: 10 mg Methylprednisolone (Solu-Medrol) 60 mg IVP Q12 [facility] Last Admin: 08/17/18 21:16 Dose: 60 mg Metoprolol Succinate (Toprol Xl) 25 mg PO DAILY [facility] Last Admin: 08/17/18 10:20 Dose: 25 mg Promethazine HCl/Codeine (Phenergan/Codeine Oral Syrup) 5 ml PO Q6 PRN PRN Reason: Cough Last Admin: 08/17/18 21:17 Dose: 5 ml Rosuvastatin Calcium (Crestor) 10 mg PO HS [facility] Last Admin: 08/17/18 21:17 Dose: 10 mg - Labs Labs: 08/16/18 14:25 08/16/18 14:25 PT 14.0 SECONDS (9.7-12.2) H 08/12/18 17:37 INR 1.3 08/12/18 17:37 APTT 43 SECONDS (21-34) H 08/12/18 17:37
[2018-08-18] MEDS: Albuterol 0.083% Inhal Sol (2.5 mg/3 mL) UD INH SCH ×4 (01:32→19:57)
[2018-08-18] MEDS: Acetylcysteine 20% Inhal Soln (4ml) INH SCH ×4 (01:32→19:57)
--- NOTE | 2018-08-18 02:32 | PN ---
DATE: 08/17/2018 SUBJECTIVE: The patient is less wheezing, less short of breath, and less cough. No fever. No chills. No nausea or vomiting. PHYSICAL EXAMINATION: VITAL SIGNS: Blood pressure 130/70, pulse 70, respiratory rate 17, and temperature 98. LUNGS: Bilateral scattered rhonchi. Decreased air entry. CARDIOVASCULAR SYSTEM: S1 and S2, regular. ABDOMEN: Soft. ASSESSMENT: 1. Status post pneumonia, resolved. The patient has residual bronchospasm, which is responding to steroids. 2. Hypertension. 3. Hyperlipidemia. PLAN: Continue antibiotics. Pulmonary followup. Monitor the patient. Keith Mathew MD
[2018-08-18] MEDS: Metoprolol Succinate 25 mg XL Tab PO SCH (10:28)
[2018-08-18] MEDS: Benzocaine/Menthol (Cepacol) Lozenge MT SCH ×4 (10:29→21:22)
[2018-08-18] MEDS: Azithromycin 500 MG in Sodium Chloride 0.9% 250 ML IVPB SCH (10:31)
[2018-08-18] MEDS: Promethazine/Cod 6.25mg-10mg/5ml Syr UD PO PRN ×2 (14:18→21:26)
--- NOTE | 2018-08-18 21:40 | CP.PCM.PN ---
Subjective - Date & Time of Evaluation Date of Evaluation: 08/18/18 Time of Evaluation: 07:00 - Subjective Subjective: dictated Objective - Vital Signs/Intake and Output Vital Signs (last 24 hours): Temp Pulse Resp BP Pulse Ox 97.6 F 65 20 139/75 96 08/18/18 18:54 08/18/18 18:54 08/18/18 18:54 08/18/18 18:54 08/18/18 18:54 Intake and Output: 08/18/18 08/19/18 18:59 06:59 Intake Total 830 Balance 830 - Medications Medications: Current Medications Acetaminophen (Tylenol 325mg Tab) 650 mg PO Q6 PRN PRN Reason: Fever >100.4 F Acetylcysteine (Acetylcysteine 20%) 4 ml INH RQ6 [facility] Last Admin: 08/18/18 19:57 Dose: Not Given Albuterol Sulfate (Albuterol 0.083% Inhal Diane (2.5 Mg/3 Ml) Ud) 2.5 mg INH RQ6 [facility] Last Admin: 08/18/18 19:57 Dose: Not Given Aspirin (Aspirin Chewable) 81 mg PO DAILY [facility] Last Admin: 08/18/18 10:28 Dose: 81 mg Benzocaine/Menthol (Cepacol Sore Throat) 1 john MT QID [facility] Last Admin: 08/18/18 21:22 Dose: 1 john Clopidogrel Bisulfate (Plavix) 75 mg PO DAILY [facility] Last Admin: 08/18/18 10:27 Dose: 75 mg Lisinopril (Zestril) 10 mg PO DAILY [facility] Last Admin: 08/18/18 10:27 Dose: 10 mg Metoprolol Succinate (Toprol Xl) 25 mg PO DAILY [facility] Last Admin: 08/18/18 10:28 Dose: 25 mg Prednisone (Prednisone Tab) 40 mg PO DAILY [facility] Promethazine HCl/Codeine (Phenergan/Codeine Oral Syrup) 5 ml PO Q6 PRN PRN Reason: Cough Last Admin: 08/18/18 21:26 Dose: 5 ml Rosuvastatin Calcium (Crestor) 10 mg PO HS [facility] Last Admin: 08/18/18 21:22 Dose: 10 mg - Labs Labs: 08/16/18 14:25 08/16/18 14:25 PT 14.0 SECONDS (9.7-12.2) H 08/12/18 17:37 INR 1.3 08/12/18 17:37 APTT 43 SECONDS (21-34) H 08/12/18 17:37
--- NOTE | 2018-08-18 22:36 | CP.PCM.PN ---
Subjective - Date & Time of Evaluation Date of Evaluation: 08/18/18 Time of Evaluation: 10:15 - Subjective Subjective: Patient seen and evaluated Denies chest pain and dyspnea Review Of Systems Except As Marked, All Systems Reviewed And Found Negative. Constitutional: Positive for: Malaise. Negative for: Fever ENT: Positive for: Nose Discharge, Nose Congestion Cardiovascular: Negative for: Chest Pain, Palpitations, Light Headedness Respiratory: Positive for: Cough. Negative for: Shortness of Breath, Wheezing Gastrointestinal: Positive for: Nausea, Vomiting, Abdominal Pain, Diarrhea. Negative for: Melena, Hematochezia, Hematemesis Musculoskeletal: Negative for: Neck Pain Skin: Negative for: Rash Neurological: Negative for: Altered Mental Status, Headache, Dizziness Physical Exam - Physical Exam Appears: Well, Non-toxic, No Acute Distress, Other (occasional dry cough) Skin: Normal Color, Warm, Dry Head: Normacephalic Eye(s): bilateral: PERRL Nose: No Flaring, No Discharge Oral Mucosa: Moist Throat: Erythema (mild B/L), No Exudate, No Drooling Neck: Supple Cardiovascular: Rhythm Regular, No Murmur, No JVD Respiratory: No Decreased Breath Sounds, No Accessory Muscle Use, No Stridor, No Wheezing Gastrointestinal/Abdominal: Soft, No Tenderness, No Distention, No Guarding, No Rebound Back: No CVA Tenderness Extremity: Normal ROM, No Deformity, No Swelling Neurological/Psych: Oriented x3, Normal Speech Assessment and Plan - Assessment and Plan (Free Text) Assessment: Pneumonia Chronic Systolic CHF CAD S/P PPM Objective - Vital Signs/Intake and Output Vital Signs (last 24 hours): Temp Pulse Resp BP Pulse Ox 97.6 F 65 20 139/75 96 08/18/18 18:54 08/18/18 18:54 08/18/18 18:54 08/18/18 18:54 08/18/18 18:54 Intake and Output: 08/18/18 08/19/18 18:59 06:59 Intake Total 830 500 Balance 830 500 - Medications Medications: Current Medications Acetaminophen (Tylenol 325mg Tab) 650 mg PO Q6 PRN PRN Reason: Fever >100.4 F Acetylcysteine (Acetylcysteine 20%) 4 ml INH RQ6 [facility] Last Admin: 08/18/18 19:57 Dose: Not Given Albuterol Sulfate (Albuterol 0.083% Inhal Diane (2.5 Mg/3 Ml) Ud) 2.5 mg INH RQ6 [facility] Last Admin: 08/18/18 19:57 Dose: Not Given Aspirin (Aspirin Chewable) 81 mg PO DAILY [facility] Last Admin: 08/18/18 10:28 Dose: 81 mg Benzocaine/Menthol (Cepacol Sore Throat) 1 john MT QID [facility] Last Admin: 08/18/18 21:22 Dose: 1 john Clopidogrel Bisulfate (Plavix) 75 mg PO DAILY [facility] Last Admin: 08/18/18 10:27 Dose: 75 mg Lisinopril (Zestril) 10 mg PO DAILY [facility] Last Admin: 08/18/18 10:27 Dose: 10 mg Metoprolol Succinate (Toprol Xl) 25 mg PO DAILY [facility] Last Admin: 08/18/18 10:28 Dose: 25 mg Prednisone (Prednisone Tab) 40 mg PO DAILY [facility] Promethazine HCl/Codeine (Phenergan/Codeine Oral Syrup) 5 ml PO Q6 PRN PRN Reason: Cough Last Admin: 08/18/18 21:26 Dose: 5 ml Rosuvastatin Calcium (Crestor) 10 mg PO HS [facility] Last Admin: 08/18/18 21:22 Dose: 10 mg - Labs Labs: 08/16/18 14:25 08/16/18 14:25 PT 14.0 SECONDS (9.7-12.2) H 08/12/18 17:37 INR 1.3 08/12/18 17:37 APTT 43 SECONDS (21-34) H 08/12/18 17:37
[2018-08-19 00:40] VITALS: TEMP 98
[2018-08-19] MEDS: Albuterol 0.083% Inhal Sol (2.5 mg/3 mL) UD INH SCH ×2 (01:40→09:08)
[2018-08-19] MEDS: Acetylcysteine 20% Inhal Soln (4ml) INH SCH ×2 (01:40→09:07)
--- NOTE | 2018-08-19 06:51 | PN ---
DATE: 08/18/2018 SUBJECTIVE: Still the patient has some cough, congestion. She is less short of breath, less wheezing. No fever. No chills. Chest x-ray shows the patient's infiltrate has improved. No nausea or vomiting. No chest pain. PHYSICAL EXAMINATION: VITAL SIGNS: Blood pressure 139/75, pulse 65, respiratory rate 20, temperature 97.6. SKIN: Senile turgor. LUNGS: Bilateral inspiratory and expiratory rhonchi, decreased air entry. CARDIOVASCULAR SYSTEM: S1 and S2, regular. ASSESSMENT: 1. Pneumonia. 2. Hypertension. PLAN: Taper steroids. Monitor the patient. Keith Mathew MD
[2018-08-19 07:42] VITALS: BP 152/79; PULSE 60; RESP 60; O2SAT 96
--- NOTE | 2018-08-19 09:42 | CP.PCM.PN ---
Subjective - Date & Time of Evaluation Date of Evaluation: 08/19/18 Time of Evaluation: 09:39 - Subjective Subjective: Pulmonary Progress Note for Dr. Manrique's service Patient seen and examined at bedside. Remains afebrile. Patient continues to feel improved and is no longer short of breath Unproductive cough remains. Likely DC today ROS: denies nausea, vomiting, diarrhea, fever, chills, SOB Positives: cough Objective - Vital Signs/Intake and Output Vital Signs (last 24 hours): Temp Pulse Resp BP Pulse Ox 98 F 60 60 H 152/79 H 96 08/19/18 07:41 08/19/18 07:41 08/19/18 07:41 08/19/18 07:41 08/19/18 07:41 Intake and Output: 08/19/18 08/19/18 06:59 18:59 Intake Total 620 Balance 620 - Medications Medications: Current Medications Acetaminophen (Tylenol 325mg Tab) 650 mg PO Q6 PRN PRN Reason: Fever >100.4 F Acetylcysteine (Acetylcysteine 20%) 4 ml INH RQ6 [facility] Last Admin: 08/19/18 09:07 Dose: Not Given Albuterol Sulfate (Albuterol 0.083% Inhal Diane (2.5 Mg/3 Ml) Ud) 2.5 mg INH RQ6 [facility] Last Admin: 08/19/18 09:08 Dose: Not Given Aspirin (Aspirin Chewable) 81 mg PO DAILY [facility] Last Admin: 08/18/18 10:28 Dose: 81 mg Benzocaine/Menthol (Cepacol Sore Throat) 1 john MT QID [facility] Last Admin: 08/18/18 21:22 Dose: 1 john Clopidogrel Bisulfate (Plavix) 75 mg PO DAILY [facility] Last Admin: 08/18/18 10:27 Dose: 75 mg Lisinopril (Zestril) 10 mg PO DAILY [facility] Last Admin: 08/18/18 10:27 Dose: 10 mg Metoprolol Succinate (Toprol Xl) 25 mg PO DAILY [facility] Last Admin: 08/18/18 10:28 Dose: 25 mg Prednisone (Prednisone Tab) 40 mg PO DAILY [facility] Promethazine HCl/Codeine (Phenergan/Codeine Oral Syrup) 5 ml PO Q6 PRN PRN Reason: Cough Last Admin: 08/18/18 21:26 Dose: 5 ml Rosuvastatin Calcium (Crestor) 10 mg PO HS YANA Last Admin: 08/18/18 21:22 Dose: 10 mg - Labs Labs: 08/16/18 14:25 08/16/18 14:25 PT 14.0 SECONDS (9.7-12.2) H 08/12/18 17:37 INR 1.3 08/12/18 17:37 APTT 43 SECONDS (21-34) H 08/12/18 17:37 - Constitutional Appears: Non-toxic, No Acute Distress - Head Exam Head Exam: ATRAUMATIC, NORMOCEPHALIC - Eye Exam Eye Exam: EOMI, PERRL - ENT Exam ENT Exam: Mucous Membranes Moist, Normal Exam - Neck Exam Neck Exam: Normal Inspection - Respiratory Exam Respiratory Exam: Clear to Ausculation Bilateral, NORMAL BREATHING PATTERN. absent: Rales, Rhonchi, Wheezes - Cardiovascular Exam Cardiovascular Exam: REGULAR RHYTHM, +S1, +S2. absent: JVD - GI/Abdominal Exam GI & Abdominal Exam: Soft, Normal Bowel Sounds - Extremities Exam Extremities Exam: Normal Inspection - Neurological Exam Neurological Exam: Alert, Awake, CN II-XII Intact, Oriented x3 - Skin Skin Exam: Dry, Warm Assessment and Plan - Assessment and Plan (Free Text) Assessment: 62 year old female with past medical history of HTN consulted for community acquired PNA Plan: Pneumonia (resolved) CXR consistent with right lung infiltrate. Continue to taper steriods in preparation for patient discharge Tessalon Pearles for cough supression Repeat CXR with no signs of active disease likely dc today f/u outpatient PGY-1 Cara Mireles d/w Dr. Manrique
[2018-08-19] MEDS: Benzocaine/Menthol (Cepacol) Lozenge MT SCH ×2 (09:50→14:07)
[2018-08-19] MEDS: Metoprolol Succinate 25 mg XL Tab PO SCH (09:50)
[2018-08-19] MEDS: Promethazine/Cod 6.25mg-10mg/5ml Syr UD PO PRN (09:57)
--- NOTE | 2018-08-19 17:24 | CP.PCM.PN ---
Subjective - Date & Time of Evaluation Date of Evaluation: 08/19/18 Time of Evaluation: 11:00 - Subjective Subjective: alert, orientedx3, no sob or distress. Objective - Vital Signs/Intake and Output Vital Signs (last 24 hours): Temp Pulse Resp BP Pulse Ox 98 F 60 60 H 152/79 H 96 08/19/18 07:41 08/19/18 07:41 08/19/18 07:41 08/19/18 07:41 08/19/18 07:41 Intake and Output: 08/19/18 08/19/18 06:59 18:59 Intake Total 620 Balance 620 - Labs Labs: 08/16/18 14:25 08/16/18 14:25 PT 14.0 SECONDS (9.7-12.2) H 08/12/18 17:37 INR 1.3 08/12/18 17:37 APTT 43 SECONDS (21-34) H 08/12/18 17:37 Assessment and Plan - Assessment and Plan (Free Text) Assessment: 62 year old female admitted with pneumonia, seen and examined. Alert and orientedx3, no sob or chest pains or wheezing. Discussed with DR Mathew, plan to discharge home on tapering dose of prednisone and tessalone pearles. Advised to follow up with PMD in 1 week.
--- NOTE | 2018-08-19 21:37 | CP.PCM.DIS ---
Provider - Provider Date of Admission: 08/12/18 18:07 Attending physician: Keith Mathew MD Consults: 08/12/18 18:31 Physician Consult Stat Comment: Consulting Provider: Lisandro Mora Consulting Physician: Lisandro Mora Reason for Consult: SOB, CP 08/12/18 21:18 Cardiology Consult Routine Comment: Consulting Provider: Lisandro Mora Consulting Physician: Lisandro Mora Reason for Consult: HTN HD Pulmonology Consult Routine Comment: Consulting Provider: Humberto Manrique Consulting Physician: Humberto Manrique Reason for Consult: pna Time Spent in preparation of Discharge (in minutes): 30 Hospital Course - Lab Results Lab Results: Micro Results 08/12/18 19:40 Blood Blood Culture - Final NO GROWTH AFTER 5 DAYS 08/12/18 19:40 Blood Gram Stain - Final TEST NOT PERFORMED 08/12/18 19:10 Blood Blood Culture - Final NO GROWTH AFTER 5 DAYS 08/12/18 19:10 Blood Gram Stain - Final TEST NOT PERFORMED 08/13/18 06:00 Stool Stool Culture - Final NO SALMONELLA, SHIGELLA OR CAMPYLOBACTER ISOLATED. 08/12/18 22:14 Urine Random Urine Culture - Final No Growth (<1,000 CFU/ML) Most Recent Lab Values WBC 17.0 K/uL (4.8-10.8) H D 08/16/18 14:25 RBC 3.53 Mil/uL (3.80-5.20) L 08/16/18 14:25 Hgb 11.3 g/dL (11.0-16.0) 08/16/18 14:25 Hct 34.6 % (34.0-47.0) 08/16/18 14:25 MCV 97.9 fL (81.0-99.0) 08/16/18 14:25 MCH 32.1 pg (27.0-31.0) H 08/16/18 14:25 MCHC 32.8 g/dL (33.0-37.0) L 08/16/18 14:25 RDW 14.2 % (11.5-14.5) 08/16/18 14:25 Plt Count 313 K/uL (130-400) 08/16/18 14:25 MPV 8.8 fL (7.2-11.7) 08/16/18 14:25 Neut % (Auto) 83.6 % (50.0-75.0) H 08/16/18 14:25 Lymph % (Auto) 10.9 % (20.0-40.0) L 08/16/18 14:25 Sutter % (Auto) 5.3 % (0.0-10.0) 08/16/18 14:25 Eos % (Auto) 0.0 % (0.0-4.0) 08/16/18 14:25 Baso % (Auto) 0.2 % (0.0-2.0) 08/16/18 14:25 Neut # (Auto) 14.2 K/uL (1.8-7.0) H 08/16/18 14:25 Lymph # (Auto) 1.8 K/uL (1.0-4.3) 08/16/18 14:25 Sutter # (Auto) 0.9 K/uL (0.0-0.8) H 08/16/18 14:25 Eos # (Auto) 0.0 K/uL (0.0-0.7) 08/16/18 14:25 Baso # (Auto) 0.0 K/uL (0.0-0.2) 08/16/18 14:25 PT 14.0 SECONDS (9.7-12.2) H 08/12/18 17:37 INR 1.3 08/12/18 17:37 APTT 43 SECONDS (21-34) H 08/12/18 17:37 pO2 20 mm/Hg (30-55) L 08/12/18 20:10 VBG pH 7.34 (7.32-7.43) 08/12/18 20:10 VBG pCO2 50 mmHg (40-60) 08/12/18 20:10 VBG HCO3 23.4 mmol/L 08/12/18 20:10 VBG Total CO2 28.5 mmol/L (22-28) H 08/12/18 20:10 VBG O2 Sat (Calc) 30.5 % (40-65) L 08/12/18 20:10 VBG Base Excess 0.5 mmol/L (0.0-2.0) 08/12/18 20:10 VBG Potassium 3.7 mmol/L (3.6-5.2) 08/12/18 20:10 Sodium 140.0 mmol/l (132-148) 08/12/18 20:10 Chloride 104.0 mmol/L (98-107) 08/12/18 20:10 Glucose 87 mg/dl (65-105) 08/12/18 20:10 Lactate 2.1 mmol/L (0.7-2.1) 08/12/18 20:10 FiO2 21.0 % 08/12/18 20:10 Sodium 140 mmol/L (132-148) 08/16/18 14:25 Potassium 4.9 mmol/L (3.6-5.2) 08/16/18 14:25 Chloride 106 mmol/L (98-107) 08/16/18 14:25 Carbon Dioxide 28 mmol/L (22-30) 08/16/18 14:25 Anion Gap 11 (10-20) 08/16/18 14:25 BUN 13 mg/dL (7-17) 08/16/18 14:25 Creatinine 0.9 mg/dL (0.7-1.2) 08/16/18 14:25 Est GFR ( Amer) > 60 08/16/18 14:25 Est GFR (Non-Af Amer) > 60 08/16/18 14:25 Random Glucose 134 mg/dL (65-105) H D 08/16/18 14:25 Calcium 9.1 mg/dl (8.6-10.4) 08/16/18 14:25 Phosphorus 3.4 mg/dL (2.5-4.5) 08/16/18 14:25 Magnesium 2.3 mg/dL (1.6-2.3) 08/16/18 14:25 Total Bilirubin 0.3 mg/dL (0.2-1.3) 08/16/18 14:25 AST 20 U/L (14-36) 08/16/18 14:25 ALT 18 U/L (9-52) 08/16/18 14:25 Alkaline Phosphatase 74 U/L (38-126) 08/16/18 14:25 Total Creatine Kinase 701 U/L (30-135) H 08/13/18 13:44 CK-MB (Mass) 3.68 ng/mL (0.0-3.38) H 08/13/18 13:44 Troponin I < 0.0120 ng/mL (0.00-0.120) 08/13/18 13:44 NT-Pro-B Natriuret Pep 498 pg/mL (0-900) 08/12/18 17:37 Total Protein 7.3 g/dL (6.3-8.3) 08/16/18 14:25 Albumin 3.9 g/dL (3.5-5.0) 08/16/18 14:25 Globulin 3.4 gm/dL (2.2-3.9) 08/16/18 14:25 Albumin/Globulin Ratio 1.1 (1.0-2.1) 08/16/18 14:25 Lipase 51 U/L (23-300) 08/12/18 17:37 Venous Blood Potassium 3.7 mmol/L (3.6-5.2) 08/12/18 20:10 Urine Color Yellow (YELLOW) 08/12/18 22:14 Urine Clarity Clear (Clear) 08/12/18 22:14 Urine pH 5.0 (5.0-8.0) 08/12/18 22:14 Ur Specific Bowman 1.008 (1.003-1.030) 08/12/18 22:14 Urine Protein Negative mg/dL (NEGATIVE) 08/12/18 22:14 Urine Glucose (UA) Normal mg/dL (Normal) 08/12/18 22:14 Urine Ketones Negative mg/dL (NEGATIVE) 08/12/18 22:14 Urine Blood 1+ (NEGATIVE) H 08/12/18 22:14 Urine Nitrate Negative (NEGATIVE) 08/12/18 22:14 Urine Bilirubin Negative (NEGATIVE) 08/12/18 22:14 Urine Urobilinogen Normal mg/dL (0.2-1.0) 08/12/18 22:14 Ur Leukocyte Esterase Neg Rosa/uL (Negative) 08/12/18 22:14 Urine WBC (Auto) 1 /hpf (0-5) 08/12/18 22:14 Urine RBC (Auto) 3 /hpf (0-3) 08/12/18 22:14 Ur Squamous Epith Cells < 1 /hpf (0-5) 08/12/18 22:14 Urine Bacteria Rare (<OCC) 08/12/18 22:14 C. difficile Ag & Toxin Negative (NEGATIVE) 08/12/18 18:45 Influenza Typ A,B (EIA) Negative for flu a/b (NEGATIVE) 08/12/18 17:37 Ur L.pneumophila Ag Negative (NEGATIVE) 08/14/18 09:09 Mycoplasma pneumon IgM Negative (NEGATIVE) 08/13/18 19:48 Discharge Exam - Head Exam Head Exam: ATRAUMATIC, NORMOCEPHALIC Discharge Plan - Discharge Medications Prescriptions: predniSONE [Prednisone] 10 mg PO DAILY #19 tab Benzonatate [Tessalon Perles] 100 mg PO TID #30 sgl - Follow Up Plan Condition: STABLE Disposition: HOME/ ROUTINE Instructions: Pneumonia, Adult (DC), Anoxic Brain Damage (DC), Benzonatate, Prednisone Referrals: Keith Mathew MD [Staff Provider] -
--- NOTE | 2018-08-20 06:48 | DS ---
DISCHARGE DIAGNOSES: 1. Pneumonia. 2. Hypertension. HOSPITAL COURSE: This is a 62-year-old -[place] female with history of hypertension, came in because of cough, congestion, shortness of breath, wheezing, fever, chills, rigors. Chest x-ray showed pneumonia. The patient was started on antibiotics. The patient became afebrile, but her cough, congestion, and wheezing did not improve. Pulmonary was consulted, and the patient was started on Solu-Medrol, and she was maintained on Solu-Medrol. The patient did well subsequently and here for discharge. CONDITION UPON DISCHARGE: Stable. PHYSICAL EXAMINATION: VITAL SIGNS: Blood pressure 152/79, pulse 60, respiratory rate 20, and temperature 98. LUNGS: Still the patient has expiratory and inspiratory rhonchi. CARDIOVASCULAR SYSTEM: S1, S2. Regular. ABDOMEN: Soft. PLAN: Discharge the patient. Follow up with PMD in one week. Keith Mathew MD
== END 2018-08-19 14:30 | disposition home or self-care (01) | DRG 541 ==
LOC: C.ER 15:27 → C.3T 18:07
PROVIDERS: ADMIT Internal Medicine; ATTEND Internal Medicine
DX: J18.1 Lobar pneumonia, unspecified organism (principal); I50.22 Chronic systolic (congestive) heart failure; E86.0 Dehydration; I11.0 Hypertensive heart disease with heart failure; R09.02 Hypoxemia; K92.2 Gastrointestinal hemorrhage, unspecified; I25.10 Atherosclerotic heart disease of native coronary artery without angina pectoris; J98.01 Acute bronchospasm; E78.5 Hyperlipidemia, unspecified; E78.00 Pure hypercholesterolemia, unspecified; Z20.828 Contact with and (suspected) exposure to other viral communicable diseases; Z86.73 Personal history of transient ischemic attack (TIA), and cerebral infarction without residual deficits; Z87.891 Personal history of nicotine dependence; Z95.5 Presence of coronary angioplasty implant and graft